=== PATIENT | female | born 1965 | race Caucasian/White ===

== ENCOUNTER 2017-09-01 13:39 | Inpatient (IN) ==
[2017-09-01 15:04] LABS: Basophils # 0.1 K/mcL (0.0-0.2); Basophils % 0.6 %; Eosinophils # 0.2 K/mcL (0.0-0.6); Eosinophils % 2.6 %; Hematocrit 45.3 % (35.3-44.9); Hemoglobin 14.9 g/dL (11.5-15.4); Immature Granulocytes % 0.2 % (0-4); Lymphocytes # 3.7 K/mcL (0.6-4.6); Lymphocytes % 41.9 %; Mean Corpuscular HGB Conc 32.9 g/dL (31.6-35.5); Mean Corpuscular Hemoglobin 30.9 pg (28.0-33.3); Mean Platelet Volume 9.1 fL (9.4-12.4); Monocytes # 0.5 K/mcL (0.0-1.3); Monocytes % 6.1 %; Neutrophils # 4.3 K/mcL (1.6-8.9); Nucleated Red Blood Cells 0.2 /100 WBC (0); Platelet Count 224 K/mcL (140-400); Red Blood Count 4.82 M/mcL (3.82-4.97); Red Cell Distribution Width 12.7 % (11.5-14.5); Segmented Neutrophils % 48.6 %
[2017-09-01 15:30] LABS: Alanine Aminotransferase 12 Units/L (7-52); Albumin 4.5 g/dL (3.5-5.7); Albumin/Globulin Ratio 1.6 (1.1-2.2); Alkaline Phosphatase 97 Units/L (34-104); Aspartate Amino Transferase 14 Units/L (13-39); BUN/Creatinine Ratio 11 (6-26); Bilirubin,Direct 0.1 mg/dL (0.0-0.2); Bilirubin,Indirect 0.4 mg/dL (0.0-1.2); Bilirubin,Total 0.5 mg/dL (0.3-1.0); Blood Urea Nitrogen 9 mg/dL (6-20); Calcium 9.2 mg/dL (8.6-10.3); Carbon Dioxide 32 mEq/L (23-29); Chloride 105 mEq/L (98-107); Globulin 2.8 g/dL (2.4-3.5); Glucose 84 mg/dL (70-105); Lipase 23 Units/L (11-82); Osmolality,Calculated 288 (280-300); Sodium 140 mEq/L (136-145); Total Protein 7.3 g/dL (6.4-8.9); eGFR For African Americans > 60 (> 60); eGFR For Non-African Americans > 60 (> 60)
[2017-09-01] MEDS ORDERED: 0.9 % Sodium Chloride 1,000 ML IVC ONE (16:27)
[2017-09-01] MEDS ORDERED: Ondansetron 4 MG/2 ML VIAL IVP ONE (16:27)
[2017-09-01] MEDS ORDERED: *HR* Nalbuphine 20 MG/ML AMPUL IVP STA (16:27)
--- NOTE | 2017-09-01 16:32 | Emergency Department Note ---
Disposition Clinical Impression: Colitis Disposition: Admitted As Inpatient Condition: Fair Referrals: Juve Becerril MD [Primary Care Provider] - Forms: ED Satisfaction Letter, Work/School Release Time of Disposition: 16:58 Abdominal Pain HPI - General Chief Complaint: ED Abdominal Pain Stated Complaint: Abd Pain / GI Bleed Time Seen by Provider: 09/01/17 16:07 Source: patient, family Nursing Notes Reviewed: Yes Vital Signs Reviewed: Yes - History of Present Illness HPI Narrative: Mrs. Abreu, a 51-year-old female, presents from home for evaluation of abdominal pain. Onset or days ago. Localized to the left lower quadrant and epigastrium. She describes multiple bouts of loose stools which are brown with spots of bright red blood in the water of the bowl. She has nausea with no vomiting. She has no appetite or desire for any by mouth intake. No fever. She does have a history of diverticulitis. She was seen and evaluated by her primary care physician today, Dr. Hale, perform CT imaging as well as some lab work. She is unsure of those results. After going home from this appointment, her symptoms worsened and she presented emergency department. Abdominal surgical history: Total abdominal hysterectomy. Patient is unsure if she still has her Gallbladder. ROS: Positive: As above Negative: Fever, vomiting, incontinence of bowel or bladder, weakness, numbness , tingling, chest pain, palpitations, unusual back pain. Pain Scale: 8 - Related Data Home Medications Medication Instructions Recorded Confirmed ALPRAZolam [Xanax 1 MG Tablet] 0.5 - 1 mg PO BID PRN 05/15/15 05/13/16 Diltiazem CD (24hr) [Cardizem CD] 120 mg PO DAILY 05/15/15 05/13/16 Albuterol Sulfate [Albuterol 2 puff IH QID PRN 05/13/16 05/13/16 Inhaler] Gabapentin [Neurontin] 300 mg PO TID 05/13/16 05/13/16 Pantoprazole Sodium [Protonix] 40 mg PO DAILY 05/13/16 05/13/16 Doxepin [Sinequan] 25 mg PO DAILY 09/01/17 09/01/17 HydrOXYzine Pamoate [Vistaril] 50 mg PO TID PRN 09/01/17 09/01/17 Promethazine [Phenergan] 25 mg PO Q8HR PRN 09/01/17 09/01/17 Quetiapine Fumarate [SEROquel] 100 mg PO HS 09/01/17 09/01/17 carBAMazepine [Tegretol] 200 mg PO BID 09/01/17 09/01/17 cloNIDine HCl [CloNIDine HCl] 0.1 mg PO DAILY 09/01/17 09/01/17 Previous Rx's Medication Instructions Recorded Ipratropium/Albuterol Neb [Duoneb] 3 ml IH Q4HR PRN #50 vial.neb 04/15/16 Allergies Allergy/AdvReac Type Severity Reaction Status Date / Time celecoxib Allergy See Verified 09/01/17 13:46 Comments oxcarbazepine Allergy See Verified 09/01/17 13:46 Comments rofecoxib Allergy See Verified 09/01/17 13:46 Comments Njxtxpg-Bdc-Yrw Reductase Allergy Rash Verified 09/01/17 13:46 Inhibitor [Statins] All systems ED: reviewed and negative except as stated. Review of Systems: As Per HPI Abdominal Pain PMH - Past Medical History Medical history: Reports: atrial fibrillation, diabetes, hypertension, other Female Surgical History: Reports: angioplasty/stent, hysterectomy, other HEALTHCARE RISK CONTROL CONSULTANT history: Reports: no HEALTHCARE RISK CONTROL CONSULTANT history Psychiatric history: Reports: anxiety, bipolar, depression - Social History Smoking status: Current every day smoker Alcohol use: Reports: none Drug use: Reports: none Physical Exam Vital Signs Reviewed General: Patient is alert, oriented, and in moderate distress holding her lower abdomen. Head: atraumatic, normocephalic Eye: normal appearance, PERRL, EOMI, no scleral icterus, no conjunctival injection ENT: mucous membranes moist, normal external ear exam Neck: normal inspection, trachea midline, full ROM Chest: normal inspection, symmetric chest rise Respiratory: Good respiratory effort. Bilateral breath sounds are clear without wheezing, crackles, or rhonchi. Cardiovascular: Regular rate and rhythm. No clicks, rubs, gallops, or murmors. Normal heart sounds. Abdomen: Bowel sounds present normoactive x-4 quadrants. Abdomen is soft, nondistended, and nontender. No guarding or rebound. No organomegaly noted. Musculoskeletal: Spontaneously moving all extremities. Skin: warm, dry, intact. Neuro: Alert and oriented x4. Sensation light touch intact. Psych: Patient's affect is appropriate for situation. - General Limitations: no limitations General appearance: alert, in no apparent distress Course Course Narrative: Patient presents with left lower quadrant pain and blood in her stools concerning for diverticulitis. Her abdomen is not diffusely tender making bowel obstruction less likely. Comparing outpatient labs drawn this morning to those drawn on this emergency department visit: Serum hematology shows no leukocytosis, no anemia Serum chemistry shows normal lateralize, no renal impairment. No hepatic transaminitis. Normal lipase. CT abdomen and pelvis with IV and oral contrast performed this morning as an outpatient interpreted by radiology: CT/CT abd pelvis w iv and oral IMPRESSION: Mild wall thickening involving the distal descending colon and sigmoid colon. Findings may represent a mild colitis however symptoms persist recommend further evaluation with colonoscopy. EKG dated 09/11/1815: 28 interpreted as sinus rhythm with a rate of 69. Normal intervals. Normal axis. Nonspecific ST-T changes. Compared to previous dated 12/01/2016 showing no acute ischemic changes in comparison. I discussed the above the patient. She prefers admission for continued evaluation management given her inability to tolerate by mouth intake secondary to her nausea and her abdominal pain Discussed the patient with the admitting hospitalist, Dr. Oliver, who agrees to accept the patient for continued evaluation and management of colitis. Vital Signs Temperature 98.1 F 09/01/17 13:44 Pulse Rate 74 09/01/17 13:44 Respiratory Rate 18 09/01/17 13:44 Blood Pressure 125/87 09/01/17 13:44 O2 Sat by Pulse Oximetry 98 09/01/17 13:44 Temperature 98.1 F 09/01/17 13:44 Pulse Rate 74 09/01/17 13:44 Respiratory Rate 18 09/01/17 13:44 Blood Pressure 125/87 09/01/17 13:44 O2 Sat by Pulse Oximetry 98 09/01/17 13:44 Oxygen Delivery Oxygen Delivery Room Air Abdominal Pain - Lab Data Result diagrams: 09/01/17 14:52 09/01/17 14:52 Lab Results 09/01/17 09/01/17 09/01/17 Range/Units 14:52 14:52 14:52 WBC 8.8 (4.3-11.1) K/mcL RBC 4.82 (3.82-4.97) M/mcL Hgb 14.9 (11.5-15.4) g/dL Hct 45.3 H (35.3-44.9) % MCV 94.0 (83.0-100.0) fL MCH 30.9 (28.0-33.3) pg MCHC 32.9 (31.6-35.5) g/dL RDW 12.7 (11.5-14.5) % Plt Count 224 (140-400) K/mcL MPV 9.1 L (9.4-12.4) fL Immature Gran % 0.2 (0-4) % Seg Neutrophils % 48.6 % Lymphocytes % 41.9 % Monocytes % 6.1 % Eosinophils % 2.6 % Basophils % 0.6 % Neutrophils # 4.3 (1.6-8.9) K/mcL Lymphocytes # 3.7 (0.6-4.6) K/mcL Monocytes # 0.5 (0.0-1.3) K/mcL Eosinophils # 0.2 (0.0-0.6) K/mcL Basophils # 0.1 (0.0-0.2) K/mcL Nucleated RBCs/100 WBC 0.2 H (0) /100 WBC Sodium 140 (136-145) mEq/L Potassium 4.0 (3.5-5.1) mEq/L Chloride 105 (98-107) mEq/L Carbon Dioxide 32 H (23-29) mEq/L BUN 9 (6-20) mg/dL Creatinine 0.79 (0.60-1.20) mg/dL Est GFR ( Amer) > 60 (> 60) Est GFR (Non-Af Amer) > 60 (> 60) BUN/Creatinine Ratio 11 (6-26) Glucose 84 (70-105) mg/dL Calculated Osmolality 288 (280-300) Calcium 9.2 (8.6-10.3) mg/dL Total Bilirubin 0.5 (0.3-1.0) mg/dL Direct Bilirubin 0.1 (0.0-0.2) mg/dL Indirect Bilirubin 0.4 (0.0-1.2) mg/dL AST 14 (13-39) Units/L ALT 12 (7-52) Units/L Alkaline Phosphatase 97 (34-104) Units/L Serum Total Protein 7.3 (6.4-8.9) g/dL Albumin 4.5 (3.5-5.7) g/dL Globulin 2.8 (2.4-3.5) g/dL Albumin/Globulin Ratio 1.6 (1.1-2.2) Lipase 23 (11-82) Units/L Urine Color (Yellow) Urine Clarity (Clear) Urine pH (5.0-8.0) pH Units Ur Specific [place] (1.010-1.025) Urine Protein (Neg-Trace) mg/dL Urine Glucose (UA) (Normal) mg/dL Urine Ketones (Negative) mg/dL Urine Blood (Negative) Urine Nitrite (Negative) Urine Bilirubin (Negative) Urine Urobilinogen (Normal) mg/dL Ur Leukocyte Esterase (Negative) Ur Culture Indicated? (NO) Blood Type A POSITIVE Antibody Screen NEGATIVE 09/01/17 Range/Units 16:30 WBC (4.3-11.1) K/mcL RBC (3.82-4.97) M/mcL Hgb (11.5-15.4) g/dL Hct (35.3-44.9) % MCV (83.0-100.0) fL MCH (28.0-33.3) pg MCHC (31.6-35.5) g/dL RDW (11.5-14.5) % Plt Count (140-400) K/mcL MPV (9.4-12.4) fL Immature Gran % (0-4) % Seg Neutrophils % % Lymphocytes % % Monocytes % % Eosinophils % % Basophils % % Neutrophils # (1.6-8.9) K/mcL Lymphocytes # (0.6-4.6) K/mcL Monocytes # (0.0-1.3) K/mcL Eosinophils # (0.0-0.6) K/mcL Basophils # (0.0-0.2) K/mcL Nucleated RBCs/100 WBC (0) /100 WBC Sodium (136-145) mEq/L Potassium (3.5-5.1) mEq/L Chloride (98-107) mEq/L Carbon Dioxide (23-29) mEq/L BUN (6-20) mg/dL Creatinine (0.60-1.20) mg/dL Est GFR ( Amer) (> 60) Est GFR (Non-Af Amer) (> 60) BUN/Creatinine Ratio (6-26) Glucose (70-105) mg/dL Calculated Osmolality (280-300) Calcium (8.6-10.3) mg/dL Total Bilirubin (0.3-1.0) mg/dL Direct Bilirubin (0.0-0.2) mg/dL Indirect Bilirubin (0.0-1.2) mg/dL AST (13-39) Units/L ALT (7-52) Units/L Alkaline Phosphatase (34-104) Units/L Serum Total Protein (6.4-8.9) g/dL Albumin (3.5-5.7) g/dL Globulin (2.4-3.5) g/dL Albumin/Globulin Ratio (1.1-2.2) Lipase (11-82) Units/L Urine Color Yellow (Yellow) Urine Clarity Clear (Clear) Urine pH 6.0 (5.0-8.0) pH Units Ur Specific [place] > 1.030 H (1.010-1.025) Urine Protein Negative (Neg-Trace) mg/dL Urine Glucose (UA) Normal (Normal) mg/dL Urine Ketones Negative (Negative) mg/dL Urine Blood Negative (Negative) Urine Nitrite Negative (Negative) Urine Bilirubin Negative (Negative) Urine Urobilinogen Normal (Normal) mg/dL Ur Leukocyte Esterase Negative (Negative) Ur Culture Indicated? NO (NO) Blood Type Antibody Screen
[2017-09-01] MEDS ORDERED: MetroNIDAZOLE 500 MG/100 ML 500 MG/100 ML BAG IVPB ONE (16:34)
--- NOTE | 2017-09-01 16:35 | Emergency Department Note ---
START Narrative - START START: I examined this patient and my medical decision-making was reviewed with the Resident Physician. I agree with the documented findings, disposition and treatment plan as described except to the extent set forth below. 51-year-old female presents emergency room for abdominal pain. Patient outpatient CT scan done this morning that showed evidence of colitis in the sigmoid colon in the descending colon. Patient does not feel well enough to go home. She does not have a white count. We will give IV antibiotics and admit overnight.
[2017-09-01 16:44] LABS: Bilirubin,Urine Negative (Negative); Blood,Urine Negative (Negative); Clarity,Urine Clear (Clear); Color,Urine Yellow (Yellow); Glucose,Urine (UA) Normal (Normal); Ketones,Urine Negative (Negative); Leukocyte Esterase,Urine Negative (Negative); Nitrite,Urine Negative (Negative); Protein,Urine Negative (Neg-Trace); Specific Gravity,Urine > 1.030 (1.010-1.025); Urobilinogen,Urine Normal (Normal)
[2017-09-01] MEDS ORDERED: *HR* Nalbuphine 10 MG/ML AMPUL IVP STA (17:25)
[2017-09-01] MEDS: *HR* Promethazine 25 MG/ML VIAL IVP PRN (20:14)
[2017-09-01] MEDS ORDERED: Naloxone 0.4 MG/ML INJ IVP PRN (21:48)
[2017-09-01] MEDS ORDERED: hydrOXYzine pamoate 25 MG CAPSULE PO PRN (21:55)
[2017-09-01] MEDS ORDERED: ALPRAZolam 1 MG TABLET PO PRN (21:55)
--- NOTE | 2017-09-01 22:16 | Internal Med History&Physical ---
Date of Encounter: 09/01/17 Time of Encounter: 20:00 Internal Medicine - H&P: HPI Chief complaint: Abdominal pain Admitted From: Home Plans for Post Hospital Care: Home History of present illness: Ms. Abreu is a 51 year old female present to ER for abdominal pain and rectal bleeding. Past medical history is significant for paroxysmal A. fib, diabetes on diet control only, hypertension, COPD on night oxygen. Patient said since 4 days ago she started has abdominal pain, which located on left lower quadrant. Patient has nausea and vomited once. The vomiting are stomach content, no blood in it. Patient has bloody diarrhea since 2 days ago. Patient said the blood is bright red, sometimes mixed with stool. The diarrhea subsided today. Patient denies fever. Patient had abdominal CT which shows colitis. Patient was admitted for further management. Past Med Surg Social Fam HX - Past Medical History Medical history: atrial fibrillation, diabetes, hypertension, other Psychiatric history: anxiety, bipolar, depression - Past Surgical History Surgical History: , hysterectomy - Social History Smoking Status: Current every day smoker Packs per day: 1 Smokeless Tobacco Status: No Alcohol use: none Drug use: none - Family History Mother Hx Family Cardiac Disorders: Yes Hx Family Endocrine Disorder: Yes Father Hx Family Cardiac Disorders: Yes Hx Family Cancer: Yes (prostate ca) Hx Family Endocrine Disorder: Yes Internal Medicine - H&P: Meds ALPRAZolam [Xanax 1 MG Tablet] 0.5 - 1 mg PO BID PRN 05/15/15 [History] Diltiazem CD (24hr) [Cardizem CD] 120 mg PO DAILY 05/15/15 [History] Ipratropium/Albuterol Neb [Duoneb] 3 ml IH Q4HR PRN #50 vial.neb 04/15/16 [Rx] Albuterol Sulfate [Albuterol Inhaler] 2 puff IH QID PRN 05/13/16 [History] Gabapentin [Neurontin] 300 mg PO TID 05/13/16 [History] Pantoprazole Sodium [Protonix] 40 mg PO DAILY 05/13/16 [History] Doxepin [Sinequan] 25 mg PO DAILY 09/01/17 [History] HydrOXYzine Pamoate [Vistaril] 50 mg PO TID PRN 09/01/17 [History] Promethazine [Phenergan] 25 mg PO Q8HR PRN 09/01/17 [History] Quetiapine Fumarate [SEROquel] 100 mg PO HS 09/01/17 [History] carBAMazepine [Tegretol] 200 mg PO BID 09/01/17 [History] cloNIDine HCl [CloNIDine HCl] 0.1 mg PO DAILY 09/01/17 [History] 3 Allergy/AdvReac Type Severity Reaction Status Date / Time celecoxib Allergy See Verified 09/01/17 13:46 Comments oxcarbazepine Allergy See Verified 09/01/17 13:46 Comments rofecoxib Allergy See Verified 09/01/17 13:46 Comments Jklwlay-Pla-Tvk Reductase Allergy Rash Verified 09/01/17 13:46 Inhibitor [Statins] All Systems PM: A 10-system review of systems was performed and is negative for pertinent findings except as documented above in the HPI. - Constitutional Vitals: Temp Pulse Resp BP Pulse Ox 98.0 F 62 15 148/84 96 09/01/17 18:44 09/01/17 18:44 09/01/17 18:44 09/01/17 18:44 09/01/17 18:44 General appearance: Present: A&O X 3, no acute distress, answers questions appropriately - Head Head exam: Present: atraumatic, normocephalic - Eye Eye exam: Present: PERRL, conjuntiva pink, sclera anicteric Pupils: Present: PERRL - Neck Neck exam general surgery: Present: supple, trachea midline. Absent: lymphadenopathy - Respiratory Respiratory exam: Present: CTAB. Absent: accessory muscle use, rales, rhonchi, wheezes - Cardiovascular Cardiovascular exam: Present: RRR, +S1, +S2. Absent: diastolic murmur, gallop, rubs, systolic murmur - GI/Abdominal GI/Abdominal exam: Present: normal bowel sounds, soft, tenderness (On 4Q, mainly LLQ), no peritoneal signs. Absent: distended - Extremities Exam Extremities exam: Present: warm, radial pulses palpable and symmetrical. Absent : calf tenderness, cyanotic, pedal edema - Neurological Exam Neurological exam: Present: CN II-XII intact, oriented X3, no focal deficits. Absent: pronater drift, facial droop, speech deficit - Skin Skin exam: Present: dry, intact Internal Med - H&P Results - Labs CBC & Chem 7: 09/01/17 14:52 09/01/17 14:52 - EKG Data -: EKG Interpreted by Myself EKG shows normal: sinus rhythm Rate: normal - Assessment and plan (1) A-fib Current Visit: Yes Status: Acute Assessment and plan: Right now sinus rhythm. Patient takes aspirin only for anticoagulation at home. Qualifiers: Atrial fibrillation type: paroxysmal Qualified Code(s): I48.0 - Paroxysmal atrial fibrillation (2) Diabetes Current Visit: Yes Status: Acute Assessment and plan: Patient is on diet control only at home. Continue closely monitor glucose level Qualifiers: Diabetes mellitus type: type 2 Diabetes mellitus fpc insulin use: without long term care pharmacist use Diabetes mellitus complication status: without complication Qualified Code(s): E11.9 - Type 2 diabetes mellitus without complications (3) Hypertension Current Visit: Yes Status: Acute Assessment and plan: Continue home medications. Closely monitor BP Qualifiers: Hypertension type: essential hypertension Qualified Code(s): I10 - Essential (primary) hypertension (4) Rectal bleeding Current Visit: Yes Status: Acute Assessment and plan: It is more like bloody diarrhea caused by colitis. Patient has stable H&H and vitals at this point. - Continue colitis treatment with Cipro and Flagyl - Nothing by mouth, IV fluid, IV PPI - Consul GI - Stool GI panel - Closely monitor H&H and vitals (5) DVT prophylaxis Current Visit: Yes Status: Acute Assessment and plan: EPCD (6) COPD (chronic obstructive pulmonary disease) Current Visit: Yes Status: Acute Assessment and plan: stable. No wheezing. Continue bronchodilator as needed Qualifiers: COPD type: emphysema Emphysema type: unspecified Qualified Code(s): J43.9 - Emphysema, unspecified (7) Colitis Current Visit: Yes Status: Acute Assessment and plan: CT abdomen shows colitis. Patient has acute onset abdominal pain with bloody diarrhea. Consider acute colitis. - Nothing by mouth, IV fluid, IV Cipro and Flagyl - GI stool panel - Time Spent With Patient Total time spent is greater than 50% in coordination of care (as documented) at patient's floor/unit and/or counseling patient: 40 minutes Greater than 35 minutes
[2017-09-01] MEDS: OXYCODONE Oral CONC 10 MG/0.5 ML ORAL.SYG SL PRN (23:25)
[2017-09-01] MEDS: Pantoprazole 40 MG VIAL IVP SCH (23:30)
[2017-09-01] MEDS: 0.9 % Sodium Chloride 1,000 ML IVC SCH (23:30)
[2017-09-02] MEDS ORDERED: Ipratropium/Albuterol Neb 3 ML IH PRN
[2017-09-02] MEDS: ALPRAZolam 1 MG TABLET PO PRN ×2 (00:33→22:42)
[2017-09-02] MEDS: MetroNIDAZOLE 500 MG/100 ML 500 MG/100 ML BAG IVPB SCH ×3 (01:19→16:54)
[2017-09-02] MEDS: Ondansetron 4 MG/2 ML VIAL IVP PRN ×3 (05:27→17:13)
[2017-09-02 06:18] LABS: Basophils % 0.6 %; Eosinophils # 0.2 K/mcL (0.0-0.6); Hematocrit 36.3 % (35.3-44.9); Hemoglobin 11.8 g/dL (11.5-15.4); Immature Granulocytes % 0.3 % (0-4); Lymphocytes # 2.7 K/mcL (0.6-4.6); Lymphocytes % 40.6 %; Mean Corpuscular HGB Conc 32.5 g/dL (31.6-35.5); Mean Corpuscular Hemoglobin 30.6 pg (28.0-33.3); Mean Platelet Volume 9.2 fL (9.4-12.4); Monocytes # 0.5 K/mcL (0.0-1.3); Monocytes % 6.9 %; Neutrophils # 3.3 K/mcL (1.6-8.9); Platelet Count 158 K/mcL (140-400); Red Blood Count 3.86 M/mcL (3.82-4.97); Red Cell Distribution Width 12.7 % (11.5-14.5); Segmented Neutrophils % 48.6 %
[2017-09-02 06:25] LABS: INR 1.1; Prothrombin Time 11.4 Seconds (9.4-12.1)
[2017-09-02 06:36] LABS: BUN/Creatinine Ratio 13 (6-26); Blood Urea Nitrogen 10 mg/dL (6-20); Carbon Dioxide 27 mEq/L (23-29); Chloride 112 mEq/L (98-107); Glucose 125 mg/dL (70-105); Magnesium 1.9 mg/dL (1.6-2.6); Osmolality,Calculated 295 (280-300); Potassium 3.7 mEq/L (3.5-5.1); Sodium 142 mEq/L (136-145); eGFR For African Americans > 60 (> 60); eGFR For Non-African Americans > 60 (> 60)
[2017-09-02] MEDS: Gabapentin 300 MG CAPSULE PO SCH ×3 (09:30→22:38)
[2017-09-02] MEDS: carBAMazepine 200 MG TABLET PO SCH ×2 (09:30→22:37)
[2017-09-02] MEDS: Diltiazem CD (24hr) 120 MG CAPSULE PO SCH (09:30)
[2017-09-02] MEDS: Pantoprazole 40 MG VIAL IVP SCH ×2 (09:30→22:38)
[2017-09-02] MEDS: OXYCODONE Oral CONC 10 MG/0.5 ML ORAL.SYG SL PRN ×3 (09:30→18:00)
[2017-09-02] MEDS: cloNIDine HCl 0.1 MG TABLET PO SCH (09:30)
[2017-09-02] MEDS: 0.9 % Sodium Chloride 1,000 ML IVC SCH (12:17)
[2017-09-02] MEDS: *HR* Promethazine 25 MG/ML VIAL IVP PRN (12:20)
--- NOTE | 2017-09-02 15:07 | Gastroenterology Consult Note ---
<BaigSumit Pisano - Last Filed: 09/02/17 15:05> Date of Encounter: 09/02/17 Time of Encounter: 11:25 - Assessment and plan (1) Colitis Current Visit: Yes Status: Acute Assessment and plan: CT A/P 09/01 with mild wall thickening involving the distal descending colon and sigmoid colon. Ischemic vs infectious colitis. Continue Cipro and Flagyl. Plan for colonoscopy in 6-8 weeks as outpatient. Follow up in GI office in 2-4 weeks. (2) Rectal bleeding Current Visit: Yes Status: Acute Assessment and plan: Likely secondary to colitis. Plan for colonoscopy as an outpatient in 6-8 weeks. No anemia noted. Continue to monitor CBC. - Time Spent With Patient Total time spent is greater than 50% in coordination of care (as documented) at patient's floor/unit and/or counseling patient: GI History of Present Illness - Data of Consult Patient: known to practice within the last 3 years Consult date: 09/02/17 Requesting Physician: Trae Munoz MD - Consult Narrative Reason for consult: Rectal bleeding History of present illness: Ms. Abreu is a 51 year old female with PMHx of Afib, DM, HTN, and COPD who presented to the ED with LLQ abdominal pain that started about 4 days prior to admission and rectal bleeding started 2 days prior to admission. Pt reports vomiting one time, denies hematemesis. CT A/P 09/01 with mild wall thickening involving the distal descending colon and sigmoid colon. She was started on Cipro and Flagyl. Hgb 14.9 on admission and today Hgb 11.8. She denies fever, chills, chest pain, shortness of breath. Procedures: EGD 05/13/2016 Dr. Jerome: Non-bleeding gastric ulcers, largest 6mm. NSAIDs: None Anticoagulation: None Past Med Surg Social Fam HX - Past Medical History Medical history: atrial fibrillation, diabetes, hypertension, other Psychiatric history: anxiety, bipolar, depression - Past Surgical History Surgical History: , hysterectomy - Social History Smoking Status: Current every day smoker Packs per day: 1 Smokeless Tobacco Status: No Alcohol use: none Drug use: none - Family History Mother Hx Family Cardiac Disorders: Yes Hx Family Endocrine Disorder: Yes Father Hx Family Cardiac Disorders: Yes Hx Family Cancer: Yes (prostate ca) Hx Family Endocrine Disorder: Yes - Gastrointestinal Gastrointestinal: Present: as per HPI - Constitutional Constitutional: as per HPI - EENT Eyes: as per HPI Ears: Present: as per HPI Nose, mouth and throat: Present: as per HPI - Cardiovascular Cardiovascular ROS: Present: as per HPI - Respiratory Respiratory IM: Present: as per HPI - Genitourinary Genitourinary: Absent: change in color, Urinary frequency - Neurological ROS Neurological GI: Present: as per HPI - Hematologic/Lymphatic Hematologic/Lymphatic pediatric: Present: as per HPI - Musculoskeletal Musculoskeletal ROS GI: Present: as per HPI - Integumentary Integumentary GI: Present: as per HPI - Psychiatric ROS Psychiatric GI: Present: as per HPI - Endocrine Endocrine IM: Present: as per HPI - Constitutional Vitals: Temp Pulse Resp BP Pulse Ox 98.1 F 65 18 116/81 91 09/02/17 14:19 09/02/17 14:19 09/02/17 14:19 09/02/17 14:19 09/02/17 14:19 General appearance: Present: cooperative, A&O X 3, no acute distress, answers questions appropriately - Head Head exam: Present: atraumatic, normocephalic - Eye Eye exam: Present: normal appearance, sclera anicteric - ENT ENT exam: Present: mucous membranes moist - Neck Neck exam general surgery: Present: normal inspection, trachea midline - Respiratory Respiratory exam: Present: CTAB. Absent: rales, rhonchi - Cardiovascular Cardiovascular exam: Present: RRR, +S1, +S2 - GI/Abdominal GI/Abdominal exam: Present: soft, tenderness (LLQ), no peritoneal signs. Absent : distended, firm, guarding - Rectal Rectal exam: Present: deferred - Extremities Exam Extremities exam: Present: warm - Neurological Exam Neurological exam: Present: no focal deficits - Psychiatric Psychiatric exam: Present: normal affect, normal mood - Skin Skin exam: Present: dry, intact, normal color, warm Results - Labs CBC & Chem 7: 09/02/17 06:05 09/02/17 06:05 Labs: Last Result Calcium 8.0 mg/dL (8.6-10.3) L 09/02/17 06:05 Entire Visit Hgb 11.8 g/dL (11.5-15.4) D 09/02/17 06:05 Hct 36.3 % (35.3-44.9) 09/02/17 06:05 PT 11.4 Seconds (9.4-12.1) 09/02/17 06:05 Total Bilirubin 0.5 mg/dL (0.3-1.0) 09/01/17 14:52 AST 14 Units/L (13-39) 09/01/17 14:52 ALT 12 Units/L (7-52) 09/01/17 14:52 Lipase 23 Units/L (11-82) 09/01/17 14:52 - ABG ABG results: PT/INR, D-dimer PT 11.4 Seconds (9.4-12.1) 09/02/17 06:05 Consult Discharge Plan - Plan Referrals: Juve Becerril MD [Primary Care Provider] - 09/13/17 1:15 pm <Isac Mendez - Last Filed: 09/02/17 23:01> Date of Encounter: 09/02/17 Time of Encounter: 16:00 - Time Spent With Patient Total time spent is greater than 50% in coordination of care (as documented) at patient's floor/unit and/or counseling patient: GI History of Present Illness - Data of Consult Requesting Physician: Trae Munoz MD - Consult Narrative History of present illness: Ms. Abreu is a 51 year old female - Constitutional Vitals: Temp Pulse Resp BP Pulse Ox 98.5 F 78 15 132/84 95 09/02/17 19:50 09/02/17 19:50 09/02/17 19:50 09/02/17 19:50 09/02/17 19:50 Results - Labs CBC & Chem 7: 09/02/17 06:05 09/02/17 06:05 Labs: Last Result Calcium 8.0 mg/dL (8.6-10.3) L 09/02/17 06:05 Entire Visit Hgb 11.8 g/dL (11.5-15.4) D 09/02/17 06:05 Hct 36.3 % (35.3-44.9) 09/02/17 06:05 PT 11.4 Seconds (9.4-12.1) 09/02/17 06:05 Total Bilirubin 0.5 mg/dL (0.3-1.0) 09/01/17 14:52 AST 14 Units/L (13-39) 09/01/17 14:52 ALT 12 Units/L (7-52) 09/01/17 14:52 Lipase 23 Units/L (11-82) 09/01/17 14:52 - ABG ABG results: PT/INR, D-dimer PT 11.4 Seconds (9.4-12.1) 09/02/17 06:05 - Attending Attestation I have personally performed a face to face evaluation on this patient. I have reviewed and agree with the care plan. History and Exam by me shows: Pt with abd pain with bloody BM. CT with colitis, consistent with ischemic colitis. No more rectal bleeding but has abd pain/bloating. Rec: EGD to r/o gatric causes. Colon out after 8 weeeks Iv abs for now and once felling better then d/c on po cipro/flagyl x 1 week
[2017-09-02] MEDS ORDERED: *HR* Midazolam HCl 5 MG/5 ML VIAL IVP ONE (15:36)
[2017-09-02] MEDS ORDERED: *HR* FentaNYL (PF) 100 MCG/2 ML VIAL ONE (15:37)
[2017-09-02] MEDS ORDERED: Tetracaine/Benzocaine/Butamben 200MG/SPRAY (100SPY/BOT) MM ONE ×2 (15:50→16:04)
[2017-09-02] MEDS ORDERED: Simethicone 40 MG/0.6 ML MLS IR ONE ×2 (15:50→16:04)
[2017-09-02] MEDS ORDERED: 0.9 % Sodium Chloride 500 ML IVC SCH (16:00)
[2017-09-02] MEDS ORDERED: *HR* Midazolam HCl 2 MG/2 ML VIAL IVP ONE (16:04)
[2017-09-02] MEDS ORDERED: *HR* FentaNYL (PF) 100 MCG/2 ML VIAL IVP ONE (16:04)
--- NOTE | 2017-09-02 16:04 | Pre-Sedation Evaluation ---
Pre-sedation evaluation - Pre-sedation checklist Date of procedure: 09/02/17 Procedure: egd Recent Vitals: Last Vital Signs Temp 98.5 F 09/02/17 15:39 Pulse 60 09/02/17 16:02 Resp 18 09/02/17 16:02 BP 120/75 09/02/17 16:02 Pulse Ox 99 09/02/17 16:02 H&P (including ROS) documented in medical record: Yes Previous reaction to sedatives/anesthetics: No Dietary Status: NPO after Midnight Dentition: No loose teeth or bridges ASA Classification *see protocol: CLASS II-Mild systemic disease Plan of Care: Pt appropriate candidate for procedure/moderate/conscious sedation , Risks/benefits of procedure/sedation discussed w/ patient/family
--- NOTE | 2017-09-02 17:07 | Electrocardiograph Report ---
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
--- NOTE | 2017-09-02 17:28 | Internal Med Progress Note ---
Date of Encounter: 09/02/17 Time of Encounter: 17:25 - Assessment and plan (1) Colitis Current Visit: Yes Status: Acute Assessment and plan: Patient has acute onset abdominal pain with bloody diarrhea. CT abdomen shows colitis. - started on IV fluid, IV Cipro and Flagyl - GI stool panel - GI recommended to continue abx, and f/u as outpatient in 2-4 weeks, plan C- scope in 6-8 weeks. (2) A-fib Current Visit: Yes Status: Acute Assessment and plan: Right now sinus rhythm. Patient takes aspirin only for anticoagulation at home. - Hold asa for a week due to bloody diarrhea. Qualifiers: Atrial fibrillation type: paroxysmal Qualified Code(s): I48.0 - Paroxysmal atrial fibrillation (3) Diabetes Current Visit: Yes Status: Acute Assessment and plan: Patient is on diet control only at home. Continue closely monitor glucose level Qualifiers: Diabetes mellitus type: type 2 Diabetes mellitus manager long term care insulin use: without intermediate use Diabetes mellitus complication status: without complication Qualified Code(s): E11.9 - Type 2 diabetes mellitus without complications (4) Hypertension Current Visit: Yes Status: Acute Assessment and plan: Continue home medications. Closely monitor BP Qualifiers: Hypertension type: essential hypertension Qualified Code(s): I10 - Essential (primary) hypertension (5) Rectal bleeding Current Visit: Yes Status: Acute Assessment and plan: It is more like bloody diarrhea caused by colitis. Patient has stable H&H and vitals at this point. - Continue colitis treatment with Cipro and Flagyl - Closely monitor H&H and vitals (6) DVT prophylaxis Current Visit: Yes Status: Acute Assessment and plan: EPCD (7) COPD (chronic obstructive pulmonary disease) Current Visit: Yes Status: Acute Assessment and plan: stable. No wheezing. Continue bronchodilator as needed Qualifiers: COPD type: emphysema Emphysema type: unspecified Qualified Code(s): J43.9 - Emphysema, unspecified - Time Spent With Patient Total time spent is greater than 50% in coordination of care (as documented) at patient's floor/unit and/or counseling patient: Greater than 35 minutes - Subjective Interval history: Improved abdominal pain. - Constitutional Vitals: Temp Pulse Resp BP Pulse Ox 98.4 F 58 16 102/64 98 09/02/17 16:50 09/02/17 16:50 09/02/17 16:50 09/02/17 16:50 09/02/17 16:50 General appearance: Present: A&O X 3, no acute distress, answers questions appropriately Exam: PHYSICAL EXAMINATION: GENERAL APPEARANCE: The patient is alert, oriented and in no acute distress. HEENT: Head is normocephalic. The sinuses are nontender. Pupils are equal and reactive. The nares are patent. Oropharynx clear without lesions. NECK: Supple without lymphadenopathy. HEART: Regular rate and rhythm. LUNGS: No crackles or wheezes are heard. ABDOMEN: Soft, tender to palpation at lower abdomen, nondistended with good bowel sounds heard. Inguinal area is normal. EXTREMITIES: Without cyanosis, clubbing or edema. NEUROLOGICAL: Gross nonfocal. SKIN: Warm and dry without any rash. Internal Medicine: Result - Labs CBC & Chem 7: 09/02/17 06:05 09/02/17 06:05 - ABG Interpretation ABG results: PT/INR, D-dimer PT 11.4 Seconds (9.4-12.1) 09/02/17 06:05 Consult Discharge Plan - Plan Referrals: Juve Becerril MD [Primary Care Provider] - 09/13/17 1:15 pm
[2017-09-03] MEDS: Ondansetron 4 MG/2 ML VIAL IVP PRN ×2 (00:55→10:44)
[2017-09-03] MEDS: OXYCODONE Oral CONC 10 MG/0.5 ML ORAL.SYG SL PRN ×3 (00:55→17:09)
[2017-09-03] MEDS: MetroNIDAZOLE 500 MG/100 ML 500 MG/100 ML BAG IVPB SCH ×2 (02:18→10:44)
[2017-09-03 06:58] LABS: Hematocrit 34.2 % (35.3-44.9); Hemoglobin 11.1 g/dL (11.5-15.4); Mean Corpuscular HGB Conc 32.5 g/dL (31.6-35.5); Mean Corpuscular Hemoglobin 30.6 pg (28.0-33.3); Mean Corpuscular Volume 94.2 fL (83.0-100.0); Mean Platelet Volume 9.6 fL (9.4-12.4); Platelet Count 146 K/mcL (140-400); Red Blood Count 3.63 M/mcL (3.82-4.97); Red Cell Distribution Width 12.6 % (11.5-14.5)
[2017-09-03 06:59] LABS: BUN/Creatinine Ratio 11 (6-26); Blood Urea Nitrogen 9 mg/dL (6-20); Carbon Dioxide 28 mEq/L (23-29); Chloride 110 mEq/L (98-107); Glucose 142 mg/dL (70-105); Osmolality,Calculated 295 (280-300); Potassium 3.7 mEq/L (3.5-5.1); Sodium 142 mEq/L (136-145); eGFR For African Americans > 60 (> 60); eGFR For Non-African Americans > 60 (> 60)
[2017-09-03] MEDS: carBAMazepine 200 MG TABLET PO SCH ×2 (08:33→20:09)
[2017-09-03] MEDS: Gabapentin 300 MG CAPSULE PO SCH ×3 (08:33→20:21)
[2017-09-03] MEDS: cloNIDine HCl 0.1 MG TABLET PO SCH ×2 (08:41→20:08)
[2017-09-03] MEDS: Diltiazem CD (24hr) 120 MG CAPSULE PO SCH (08:41)
[2017-09-03] MEDS: Pantoprazole 40 MG VIAL IVP SCH (10:44)
[2017-09-03] MEDS: Nicotine 14 MG PATCH.TD24 TD SCH (11:59)
--- NOTE | 2017-09-03 13:51 | Internal Med Progress Note ---
Date of Encounter: 09/03/17 Time of Encounter: 13:49 - Assessment and plan (1) Colitis Current Visit: Yes Status: Acute Assessment and plan: Patient has acute onset abdominal pain with bloody diarrhea. CT abdomen shows colitis. - started on IV fluid, IV Cipro and Flagyl. changed to oral abx today. - GI stool panel pending. - GI recommended to continue abx, and f/u as outpatient in 2-4 weeks, plan C- scope in 6-8 weeks. - plan to dc tomorrow. (2) A-fib Current Visit: Yes Status: Acute Assessment and plan: Right now sinus rhythm. Patient takes aspirin only for anticoagulation at home. - Hold asa for a week due to bloody diarrhea. Qualifiers: Atrial fibrillation type: paroxysmal Qualified Code(s): I48.0 - Paroxysmal atrial fibrillation (3) Diabetes Current Visit: Yes Status: Acute Assessment and plan: Patient is on diet control only at home. Continue closely monitor glucose level Qualifiers: Diabetes mellitus type: type 2 Diabetes mellitus salvage determiner insulin use: without salvage determiner use Diabetes mellitus complication status: without complication Qualified Code(s): E11.9 - Type 2 diabetes mellitus without complications (4) Hypertension Current Visit: Yes Status: Acute Assessment and plan: Continue home medications. Closely monitor BP Qualifiers: Hypertension type: essential hypertension Qualified Code(s): I10 - Essential (primary) hypertension (5) Rectal bleeding Current Visit: Yes Status: Acute Assessment and plan: It is more like bloody diarrhea caused by colitis. Patient has stable H&H and vitals at this point. - Continue colitis treatment with Cipro and Flagyl - Closely monitor H&H and vitals (6) DVT prophylaxis Current Visit: Yes Status: Acute (7) COPD (chronic obstructive pulmonary disease) Current Visit: Yes Status: Acute Assessment and plan: stable. No wheezing. Continue bronchodilator as needed Qualifiers: COPD type: emphysema Emphysema type: unspecified Qualified Code(s): J43.9 - Emphysema, unspecified - Time Spent With Patient Total time spent is greater than 50% in coordination of care (as documented) at patient's floor/unit and/or counseling patient: Greater than 35 minutes - Subjective Interval history: Improved abdominal pain. - Constitutional Vitals: Temp Pulse Resp BP Pulse Ox 98.4 F 85 15 110/77 94 09/03/17 11:07 09/03/17 11:07 09/03/17 11:07 09/03/17 11:07 09/03/17 11:07 General appearance: Present: A&O X 3, no acute distress, answers questions appropriately Exam: PHYSICAL EXAMINATION: GENERAL APPEARANCE: The patient is alert, oriented and in no acute distress. HEENT: Head is normocephalic. The sinuses are nontender. Pupils are equal and reactive. The nares are patent. Oropharynx clear without lesions. NECK: Supple without lymphadenopathy. HEART: Regular rate and rhythm. LUNGS: No crackles or wheezes are heard. ABDOMEN: Soft, nontender, nondistended with good bowel sounds heard. Inguinal area is normal. EXTREMITIES: Without cyanosis, clubbing or edema. NEUROLOGICAL: Gross nonfocal. SKIN: Warm and dry without any rash. Internal Medicine: Result - Labs CBC & Chem 7: 09/03/17 06:16 09/03/17 06:16 Labs: Short CBC 09/03/17 Range/Units 06:16 WBC 6.0 (4.3-11.1) K/mcL Hgb 11.1 L (11.5-15.4) g/dL Hct 34.2 L (35.3-44.9) % Plt Count 146 (140-400) K/mcL BMP 09/03/17 06:16 Sodium 142 Potassium 3.7 Chloride 110 H Carbon Dioxide 28 BUN 9 Creatinine 0.79 Glucose 142 H Calcium 8.0 L - ABG Interpretation ABG results: PT/INR, D-dimer PT 11.4 Seconds (9.4-12.1) 09/02/17 06:05 Consult Discharge Plan - Plan Referrals: Juve Becerril MD [Primary Care Provider] - 09/13/17 1:15 pm
[2017-09-03] MEDS: Ondansetron ODT 4 MG TAB.RAPDIS SL PRN (17:01)
[2017-09-03] MEDS: metroNIDAZOLE 500 MG TABLET PO SCH ×2 (17:01→20:21)
[2017-09-03] MEDS: ALPRAZolam 1 MG TABLET PO PRN (17:08)
[2017-09-04] MEDS: OXYCODONE Oral CONC 10 MG/0.5 ML ORAL.SYG SL PRN ×4 (01:48→20:36)
[2017-09-04] MEDS: Ondansetron ODT 4 MG TAB.RAPDIS SL PRN ×2 (01:49→07:31)
[2017-09-04 06:52] LABS: BUN/Creatinine Ratio 12 (6-26); Blood Urea Nitrogen 9 mg/dL (6-20); Calcium 8.1 mg/dL (8.6-10.3); Carbon Dioxide 23 mEq/L (23-29); Chloride 110 mEq/L (98-107); Glucose 91 mg/dL (70-105); Osmolality,Calculated 288 (280-300); Potassium 4.5 mEq/L (3.5-5.1); Sodium 140 mEq/L (136-145); eGFR For African Americans > 60 (> 60); eGFR For Non-African Americans > 60 (> 60)
[2017-09-04 06:55] LABS: Red Cell Distribution Width 12.6 % (11.5-14.5)
[2017-09-04 06:56] LABS: Hematocrit 39.1 % (35.3-44.9); Hemoglobin 12.6 g/dL (11.5-15.4); Immature Platelets 7.1 % (1.1-6.1); Mean Corpuscular HGB Conc 32.2 g/dL (31.6-35.5); Mean Corpuscular Volume 96.3 fL (83.0-100.0); Mean Platelet Volume 11.4 fL (9.4-12.4); Red Blood Count 4.06 M/mcL (3.82-4.97)
[2017-09-04] MEDS: carBAMazepine 200 MG TABLET PO SCH ×2 (07:30→20:35)
[2017-09-04] MEDS: Nicotine 14 MG PATCH.TD24 TD SCH (07:31)
[2017-09-04] MEDS: Diltiazem CD (24hr) 120 MG CAPSULE PO SCH (07:31)
[2017-09-04] MEDS: metroNIDAZOLE 500 MG TABLET PO SCH ×3 (07:31→20:35)
[2017-09-04] MEDS: Gabapentin 300 MG CAPSULE PO SCH ×3 (07:31→20:36)
[2017-09-04] MEDS: *HR* Promethazine 25 MG/ML VIAL IVP PRN (11:45)
[2017-09-04] MEDS: 0.9 % Sodium Chloride 1,000 ML IVC SCH (14:31)
[2017-09-04] MEDS: ALPRAZolam 1 MG TABLET PO PRN (14:40)
--- NOTE | 2017-09-04 17:23 | Internal Med Progress Note ---
Date of Encounter: 09/04/17 Time of Encounter: 11:00 - Assessment and plan (1) Colitis Current Visit: Yes Status: Acute Assessment and plan: Patient with left sided abdominal pain this morning; acute abdominal series showed no acute findings and negative for bowel obstruction CT of the abdomen on 09/01/17 showed mild wall thickening involving the distal descending colon and sigmoid colon; ischemic versus infectious colitis. GI following with recommendations for EGD which showed no acute findings Recommendations to continue Cipro/Flagyl and colonoscopy as an outpatient in 6- 8 weeks Will continue current management (2) Rectal bleeding Current Visit: Yes Status: Acute Assessment and plan: Suspect secondary to infectious colitis. Patient has stable H&H and vitals at this point. Continue colitis treatment with Cipro and Flagyl Closely monitor H&H and vitals (3) A-fib Current Visit: Yes Status: Acute Assessment and plan: Patient takes aspirin only for anticoagulation at home. Will hold asa for a week due to bloody diarrhea. Qualifiers: Atrial fibrillation type: paroxysmal Qualified Code(s): I48.0 - Paroxysmal atrial fibrillation (4) Diabetes Current Visit: Yes Status: Acute Assessment and plan: Patient is on diet control only at home. Continue closely monitor glucose level Qualifiers: Diabetes mellitus type: type 2 Diabetes mellitus penitentiary insulin use: without aboriginal education teacher use Diabetes mellitus complication status: without complication Qualified Code(s): E11.9 - Type 2 diabetes mellitus without complications (5) Hypertension Current Visit: Yes Status: Acute Assessment and plan: Continue home medications. Closely monitor BP Qualifiers: Hypertension type: essential hypertension Qualified Code(s): I10 - Essential (primary) hypertension (6) COPD (chronic obstructive pulmonary disease) Current Visit: Yes Status: Acute Assessment and plan: Stable; continue bronchodilator as needed Qualifiers: COPD type: emphysema Emphysema type: unspecified Qualified Code(s): J43.9 - Emphysema, unspecified (7) DVT prophylaxis Current Visit: Yes Status: Acute Assessment and plan: EPCD - Time Spent With Patient Total time spent is greater than 50% in coordination of care (as documented) at patient's floor/unit and/or counseling patient: - Subjective Interval history: Patient complaining this morning of left-sided abdominal pain Acute abdominal series without any findings of obstruction - Constitutional Vitals: Temp Pulse Resp BP Pulse Ox 98.1 F 67 16 108/75 93 09/04/17 15:13 09/04/17 15:13 09/04/17 15:13 09/04/17 15:13 09/04/17 15:13 General appearance: Present: A&O X 3, no acute distress, answers questions appropriately - Respiratory Respiratory exam: Present: CTAB. Absent: accessory muscle use, rales, rhonchi, wheezes - Cardiovascular Cardiovascular exam: Present: RRR, +S1, +S2. Absent: diastolic murmur, gallop, rubs, systolic murmur - GI/Abdominal GI/Abdominal exam: Present: distended, soft, tenderness (Left-sided tenderness to palpation) Internal Medicine: Result - Labs CBC & Chem 7: 09/04/17 04:45 09/04/17 04:45 Labs: Short CBC 09/04/17 Range/Units 04:45 WBC 5.3 (4.3-11.1) K/mcL Hgb 12.6 D (11.5-15.4) g/dL Hct 39.1 (35.3-44.9) % Plt Count 90 L (140-400) K/mcL BMP 09/04/17 04:45 Sodium 140 Potassium 4.5 Chloride 110 H Carbon Dioxide 23 BUN 9 Creatinine 0.77 Glucose 91 Calcium 8.1 L - ABG Interpretation ABG results: PT/INR, D-dimer PT 11.4 Seconds (9.4-12.1) 09/02/17 06:05 - Impressions Impressions Chest/Abdomen X-ray 09/04/17 11:01 IMPRESSION: 1. Findings suggestive of presence of minimal right basilar parenchymal disease/atelectasis. 2. Minimally abnormal but nonspecific bowel gas pattern. No radiographic findings to suggest presence of obstruction. D/ / 09/04/2017 11:42:00 Nash Chen MD / [facility] Interpreting Provider: Nash Chen MD Consult Discharge Plan - Plan Referrals: Juve Becerril MD [Primary Care Provider] - 09/13/17 1:15 pm
[2017-09-04] MEDS: cloNIDine HCl 0.1 MG TABLET PO SCH (20:36)
[2017-09-05] MEDS: 0.9 % Sodium Chloride 1,000 ML IVC SCH ×2 (01:37→16:28)
[2017-09-05] MEDS: Ondansetron ODT 4 MG TAB.RAPDIS SL PRN (01:38)
[2017-09-05] MEDS: OXYCODONE Oral CONC 10 MG/0.5 ML ORAL.SYG SL PRN ×2 (01:38→08:22)
[2017-09-05] MEDS: metroNIDAZOLE 500 MG TABLET PO SCH ×3 (07:58→19:35)
[2017-09-05] MEDS: Gabapentin 300 MG CAPSULE PO SCH ×3 (07:58→19:36)
[2017-09-05] MEDS: Diltiazem CD (24hr) 120 MG CAPSULE PO SCH (07:58)
[2017-09-05] MEDS: carBAMazepine 200 MG TABLET PO SCH ×2 (07:58→19:35)
[2017-09-05] MEDS: ALPRAZolam 1 MG TABLET PO PRN ×2 (08:00→19:38)
[2017-09-05] MEDS: Nicotine 14 MG PATCH.TD24 TD SCH (08:00)
[2017-09-05] MEDS: *HR* Promethazine 25 MG/ML VIAL IVP PRN ×2 (08:21→19:36)
[2017-09-05 10:57] LABS: Basophils % 0.3 %; Eosinophils # 0.3 K/mcL (0.0-0.6); Eosinophils % 4.7 %; Hematocrit 35.7 % (35.3-44.9); Immature Granulocytes % 0.3 % (0-4); Lymphocytes # 2.2 K/mcL (0.6-4.6); Lymphocytes % 36.2 %; Mean Corpuscular HGB Conc 33.6 g/dL (31.6-35.5); Mean Corpuscular Hemoglobin 31.6 pg (28.0-33.3); Mean Corpuscular Volume 93.9 fL (83.0-100.0); Mean Platelet Volume 9.9 fL (9.4-12.4); Monocytes # 0.4 K/mcL (0.0-1.3); Monocytes % 6.6 %; Neutrophils # 3.1 K/mcL (1.6-8.9); Platelet Count 142 K/mcL (140-400); Red Cell Distribution Width 12.2 % (11.5-14.5); Segmented Neutrophils % 51.9 %
[2017-09-05 11:16] LABS: BUN/Creatinine Ratio 9 (6-26); Blood Urea Nitrogen 8 mg/dL (6-20); Calcium 8.2 mg/dL (8.6-10.3); Carbon Dioxide 28 mEq/L (23-29); Chloride 108 mEq/L (98-107); Glucose 103 mg/dL (70-105); Osmolality,Calculated 289 (280-300); Potassium 4.1 mEq/L (3.5-5.1); Sodium 140 mEq/L (136-145); eGFR For African Americans > 60 (> 60); eGFR For Non-African Americans > 60 (> 60)
[2017-09-05] MEDS: Ondansetron 4 MG/2 ML VIAL IVP PRN (13:19)
[2017-09-05] MEDS: Ketorolac 30 MG/ML VIAL IVP PRN ×2 (13:20→19:36)
--- NOTE | 2017-09-05 16:28 | Internal Med Progress Note ---
Date of Encounter: 09/05/17 Time of Encounter: 11:00 - Assessment and plan (1) Abdominal pain Current Visit: Yes Status: Acute Assessment and plan: Patient continues to complain of left-sided abdominal pain with guarding on exam and evidence of peritoneal signs Repeat CT of the abdomen showed a nonobstructing 2-3 mm lower pole left renal pelvic stone without signs of hydronephrosis; otherwise negative CT Will consult urology and appreciate recommendations Qualifiers: Abdominal location: generalized Qualified Code(s): R10.84 - Generalized abdominal pain (2) Colitis Current Visit: Yes Status: Acute Assessment and plan: Patient with continued left sided abdominal pain this morning -CT of the abdomen on 09/01/17 showed mild wall thickening involving the distal descending colon and sigmoid colon; ischemic versus infectious colitis. -Acute abdominal series on 09/04/17 showed no acute findings and negative for bowel obstruction -Repeat CT of the abdomen on 09/05/17 showed a nonobstructing 2-3 mm lower pole left renal pelvic stone without signs of hydronephrosis; otherwise negative CT GI following with recommendations for EGD which showed no acute findings Recommendations to continue Cipro/Flagyl and colonoscopy as an outpatient in 6- 8 weeks Will continue current management (3) Rectal bleeding Current Visit: Yes Status: Acute Assessment and plan: Suspect secondary to infectious colitis. Patient has stable H&H and vitals at this point. Continue colitis treatment with Cipro and Flagyl Closely monitor H&H and vitals (4) A-fib Current Visit: Yes Status: Acute Assessment and plan: Patient takes aspirin only for anticoagulation at home. Will hold asa for a week due to lower GI bleed above Qualifiers: Atrial fibrillation type: paroxysmal Qualified Code(s): I48.0 - Paroxysmal atrial fibrillation (5) Diabetes Current Visit: Yes Status: Acute Assessment and plan: Patient is on diet control only at home. Continue closely monitor glucose level Qualifiers: Diabetes mellitus type: type 2 Diabetes mellitus rodent exterminator insulin use: without residential use Diabetes mellitus complication status: without complication Qualified Code(s): E11.9 - Type 2 diabetes mellitus without complications (6) Hypertension Current Visit: Yes Status: Acute Assessment and plan: Continue home medications. Closely monitor BP Qualifiers: Hypertension type: essential hypertension Qualified Code(s): I10 - Essential (primary) hypertension (7) COPD (chronic obstructive pulmonary disease) Current Visit: Yes Status: Acute Assessment and plan: Stable; continue bronchodilator as needed Qualifiers: COPD type: emphysema Emphysema type: unspecified Qualified Code(s): J43.9 - Emphysema, unspecified (8) DVT prophylaxis Current Visit: Yes Status: Acute Assessment and plan: EPCD - Time Spent With Patient Total time spent is greater than 50% in coordination of care (as documented) at patient's floor/unit and/or counseling patient: - Subjective Interval history: Patient continues to complain this morning of left-sided abdominal pain - Constitutional Vitals: Temp Pulse Resp BP Pulse Ox 98.1 F 59 16 105/70 96 09/05/17 14:58 09/05/17 14:58 09/05/17 14:58 09/05/17 14:58 09/05/17 14:58 General appearance: Present: A&O X 3, no acute distress, answers questions appropriately - Respiratory Respiratory exam: Present: CTAB. Absent: accessory muscle use, rales, rhonchi, wheezes - Cardiovascular Cardiovascular exam: Present: RRR, +S1, +S2. Absent: diastolic murmur, gallop, rubs, systolic murmur - GI/Abdominal GI/Abdominal exam: Present: guarding (Generalized tenderness to palpation with peritoneal signs), soft. Absent: distended Internal Medicine: Result - Labs CBC & Chem 7: 09/05/17 10:23 09/05/17 10:23 Labs: Short CBC 09/05/17 Range/Units 10:23 WBC 6.0 (4.3-11.1) K/mcL Hgb 12.0 (11.5-15.4) g/dL Hct 35.7 (35.3-44.9) % Plt Count 142 D (140-400) K/mcL Neutrophils # 3.1 (1.6-8.9) K/mcL BMP 09/05/17 10:23 Sodium 140 Potassium 4.1 Chloride 108 H Carbon Dioxide 28 BUN 8 Creatinine 0.88 Glucose 103 Calcium 8.2 L - ABG Interpretation ABG results: PT/INR, D-dimer PT 11.4 Seconds (9.4-12.1) 09/02/17 06:05 - Impressions Impressions Chest/Abdomen X-ray 09/04/17 11:01 IMPRESSION: 1. Findings suggestive of presence of minimal right basilar parenchymal disease/atelectasis. 2. Minimally abnormal but nonspecific bowel gas pattern. No radiographic findings to suggest presence of obstruction. D/ / 09/04/2017 11:42:00 Nash Chen MD / [facility] Interpreting Provider: Nash Chen MD Abdomen/Pelvis CT 09/05/17 15:30 IMPRESSION: Left nephrolithiasis. Otherwise negative noncontrast study. D/ / Leatha Cox Cha, MD / Leatha Cox Cha, MD Interpreting Provider: Leatha Cox Cha, MD Consult Discharge Plan - Plan Referrals: Juve Becerril MD [Primary Care Provider] - 09/13/17 1:15 pm
[2017-09-05] MEDS: cloNIDine HCl 0.1 MG TABLET PO SCH (19:36)
[2017-09-05] MEDS ORDERED: OXYCODONE Oral CONC 10 MG/0.5 ML ORAL.SYG SL ONE (20:43)
[2017-09-06] MEDS: 0.9 % Sodium Chloride 1,000 ML IVC SCH ×2 (04:21→15:48)
[2017-09-06] MEDS: Ketorolac 30 MG/ML VIAL IVP PRN ×4 (04:21→23:12)
--- NOTE | 2017-09-06 07:15 | Urology - Consult Note ---
Date of Encounter: 09/06/17 Time of Encounter: 07:13 - Assessment and Plan (1) Calculus of left kidney Current Visit: Yes Status: Acute Assessment and plan: Patient has small left lower pole renal stone without any obstruction. This is not causing her discomfort. Patient can follow up with urology as needed. I discussed with the patient dietary modifications which are associated with decreasing kidney stone formation. Urology CN:HPI Consult date: 09/06/17 Reason for consult Urology: Other (left kidney stone) Requesting physician: Luis Ro History of present illness: Barbara is a 51-year-old female with a history of admission to the hospital secondary to abdominal pain is found to have colitis. Patient had a CT scan done upon arrival to the hospital which revealed a left 2-3mm left lower pole kidney stone. Patient's pain is mostly located in the left anterior abdomen with some radiation towards her left lower quadrant. Pain is currently a 6 and a 10 sharp in nature. Patient currently denies any nausea or vomiting. No fevers. Past Med Surg Social Fam HX - Past Medical History Medical history: atrial fibrillation, diabetes, hypertension, other Psychiatric history: anxiety, bipolar, depression - Past Surgical History Surgical History: , hysterectomy - Social History Smoking Status: Current every day smoker Packs per day: 1 Smokeless Tobacco Status: No Alcohol use: none Drug use: none - Family History Mother Hx Family Cardiac Disorders: Yes Hx Family Endocrine Disorder: Yes Father Hx Family Cardiac Disorders: Yes Hx Family Cancer: Yes (prostate ca) Hx Family Endocrine Disorder: Yes Medications and Allergies ALPRAZolam [Xanax 1 MG Tablet] 0.5 - 1 mg PO BID PRN 05/15/15 [History] Diltiazem CD (24hr) [Cardizem CD] 120 mg PO DAILY 05/15/15 [History] Ipratropium/Albuterol Neb [Duoneb] 3 ml IH Q4HR PRN #50 vial.neb 04/15/16 [Rx] Albuterol Sulfate [Albuterol Inhaler] 2 puff IH QID PRN 05/13/16 [History] Gabapentin [Neurontin] 300 mg PO TID 05/13/16 [History] Pantoprazole Sodium [Protonix] 40 mg PO DAILY 05/13/16 [History] Doxepin [Sinequan] 25 mg PO DAILY 09/01/17 [History] HydrOXYzine Pamoate [Vistaril] 50 mg PO TID PRN 09/01/17 [History] Promethazine [Phenergan] 25 mg PO Q8HR PRN 09/01/17 [History] Quetiapine Fumarate [SEROquel] 100 mg PO HS 09/01/17 [History] carBAMazepine [Tegretol] 200 mg PO BID 09/01/17 [History] cloNIDine HCl [CloNIDine HCl] 0.1 mg PO DAILY 09/01/17 [History] 3 Allergy/AdvReac Type Severity Reaction Status Date / Time celecoxib Allergy See Verified 09/01/17 13:46 Comments oxcarbazepine Allergy See Verified 09/01/17 13:46 Comments rofecoxib Allergy See Verified 09/01/17 13:46 Comments [id number] Reductase Allergy Rash Verified 09/01/17 13:46 Inhibitor [Statins] Review of Systems - Constitutional no chills, no fever(s) - EENT Nose, mouth and throat: no dizziness, no throat swelling - Cardiovascular no chest pain - Respiratory no cough - Gastrointestinal abdominal pain - Musculoskeletal no back pain - Integumentary no erythema, no swelling - Neurological no confusion Exam Initial Vital Signs Temp Pulse Resp BP Pulse Ox 98.1 F 74 18 125/87 98 09/01/17 13:44 09/01/17 13:44 09/01/17 13:44 09/01/17 13:44 09/01/17 13:44 General/Neuological: alert and oriented x 3 Eyes: normal pupils, non-icteric Neck: no lymphadenopathy noted, supple to touch ABD: soft, tender to palpation in left side, patient very guarded without allowing me deep palpation, no masses palpated, good bowel sounds Back: no pain on percussion bilaterally Skin: no rashes noted Musculoskeletal: normal gait, FROMx4 Urology Results - Labs 09/05/17 10:23 09/05/17 10:23 Abnormal lab results RBC 3.80 M/mcL (3.82-4.97) L 09/05/17 10:23 Nucleated RBCs/100 WBC 0.2 /100 WBC (0) H 09/01/17 14:52 Immature Plt Fraction 7.1 % (1.1-6.1) H 09/04/17 04:45 Chloride 108 mEq/L (98-107) H 09/05/17 10:23 POC Glucose 105 mg/dL (70-99) H 09/04/17 07:55 Calcium 8.2 mg/dL (8.6-10.3) L 09/05/17 10:23 Ur Specific [place] > 1.030 (1.010-1.025) H 09/01/17 16:30 Diabetes panel 09/05/17 Range/Units 10:23 Sodium 140 (136-145) mEq/L Potassium 4.1 (3.5-5.1) mEq/L Chloride 108 H (98-107) mEq/L Carbon Dioxide 28 (23-29) mEq/L BUN 8 (6-20) mg/dL Creatinine 0.88 (0.60-1.20) mg/dL Glucose 103 (70-105) mg/dL Calcium 8.2 L (8.6-10.3) mg/dL Calcium panel 09/05/17 Range/Units 10:23 Calcium 8.2 L (8.6-10.3) mg/dL Pituitary panel 09/05/17 Range/Units 10:23 Sodium 140 (136-145) mEq/L Potassium 4.1 (3.5-5.1) mEq/L Chloride 108 H (98-107) mEq/L Carbon Dioxide 28 (23-29) mEq/L BUN 8 (6-20) mg/dL Creatinine 0.88 (0.60-1.20) mg/dL Glucose 103 (70-105) mg/dL Calcium 8.2 L (8.6-10.3) mg/dL Adrenal panel 09/05/17 Range/Units 10:23 Sodium 140 (136-145) mEq/L Potassium 4.1 (3.5-5.1) mEq/L Chloride 108 H (98-107) mEq/L Carbon Dioxide 28 (23-29) mEq/L BUN 8 (6-20) mg/dL Creatinine 0.88 (0.60-1.20) mg/dL Glucose 103 (70-105) mg/dL Calcium 8.2 L (8.6-10.3) mg/dL All other labs normal. - Imaging CT scan - abdomen: image reviewed CT scan - pelvis: image reviewed Consult Discharge Plan - Plan Referrals: Juve Becerril MD [Primary Care Provider] - 09/13/17 1:15 pm
[2017-09-06] MEDS: Diltiazem CD (24hr) 120 MG CAPSULE PO SCH (08:18)
[2017-09-06] MEDS: metroNIDAZOLE 500 MG TABLET PO SCH ×3 (08:18→20:02)
[2017-09-06] MEDS: carBAMazepine 200 MG TABLET PO SCH ×2 (08:19→20:02)
[2017-09-06] MEDS: Gabapentin 300 MG CAPSULE PO SCH ×3 (08:19→20:03)
[2017-09-06] MEDS: Nicotine 14 MG PATCH.TD24 TD SCH (08:19)
[2017-09-06 09:04] LABS: Basophils % 0.6 %; Eosinophils # 0.4 K/mcL (0.0-0.6); Eosinophils % 5.7 %; Hematocrit 42.9 % (35.3-44.9); Immature Granulocytes % 0.3 % (0-4); Lymphocytes # 2.5 K/mcL (0.6-4.6); Lymphocytes % 36.8 %; Mean Corpuscular HGB Conc 32.6 g/dL (31.6-35.5); Mean Corpuscular Hemoglobin 31.1 pg (28.0-33.3); Mean Corpuscular Volume 95.3 fL (83.0-100.0); Mean Platelet Volume 10.1 fL (9.4-12.4); Monocytes # 0.4 K/mcL (0.0-1.3); Monocytes % 6.3 %; Neutrophils # 3.4 K/mcL (1.6-8.9); Platelet Count 149 K/mcL (140-400); Red Cell Distribution Width 12.2 % (11.5-14.5); Segmented Neutrophils % 50.3 %
[2017-09-06 09:09] LABS: BUN/Creatinine Ratio 9 (6-26); Blood Urea Nitrogen 7 mg/dL (6-20); Carbon Dioxide 28 mEq/L (23-29); Chloride 109 mEq/L (98-107); Glucose 91 mg/dL (70-105); Osmolality,Calculated 288 (280-300); Potassium 4.3 mEq/L (3.5-5.1); Sodium 140 mEq/L (136-145); eGFR For African Americans > 60 (> 60); eGFR For Non-African Americans > 60 (> 60)
[2017-09-06] MEDS: *HR* Promethazine 25 MG/ML VIAL IVP PRN ×2 (09:39→15:47)
[2017-09-06] MEDS: Ondansetron ODT 4 MG TAB.RAPDIS SL PRN ×2 (13:55→22:15)
[2017-09-06] MEDS: Pantoprazole 40 MG VIAL IVP SCH (13:55)
--- NOTE | 2017-09-06 14:41 | Gastroenterology Progress Note ---
<Aga Lujan - Last Filed: 09/06/17 14:36> Date of Encounter: 09/06/17 Time of Encounter: 08:30 - Assessment and plan (1) Colitis Status: Acute Assessment and plan: CT A/P 09/01 with mild wall thickening involving the distal descending colon and sigmoid colon. Ischemic vs infectious colitis. Continue Cipro and Flagyl. Plan for colonoscopy in 6-8 weeks as outpatient. Follow up in GI office in 2-4 weeks. Continue IV fluids, advance diet as tolerated. - Time Spent With Patient Total time spent is greater than 50% in coordination of care (as documented) at patient's floor/unit and/or counseling patient: - Subjective Interval history: Pt is awake in bed. She continues to complain of left upper quadrant pain that radiates down her side. She reports poor appetite, and is trying to sip on liquids. She has continued nausea. She denies vomiting. She denies fever or chills. She denies rectal bleeding. - Constitutional Vitals: Temp Pulse Resp BP Pulse Ox 97.7 F 61 16 116/73 95 09/06/17 11:04 09/06/17 11:04 09/06/17 11:04 09/06/17 11:04 09/06/17 11:04 General appearance: Present: cooperative, A&O X 3, no acute distress, answers questions appropriately Exam: CONSTITUTIONAL:~alert, no acute distress.~HEAD:~normocephalic.~EYES:~no jaundice.~NECK:~no obvious swelling.~HEART:~regular rate and rhythm, no murmurs. ~LUNGS:~bilateral good air entry.~ABDOMEN:~distended, soft, very tender on the left, no masses palpable, no organomegaly.~RECTAL EXAM:~Deferred.~EXTREMITIES:~ no clubbing, cyanosis or edema.~SKIN:~no stigmata of chronic liver disease.~ NEUROLOGIC:~no obvious focal defect.~~~~ Results - Labs CBC & Chem 7: 09/06/17 08:17 09/06/17 08:17 Labs: Last Result Calcium 8.0 mg/dL (8.6-10.3) L 09/06/17 08:17 Entire Visit Hgb 14.0 g/dL (11.5-15.4) D 09/06/17 08:17 Hct 42.9 % (35.3-44.9) 09/06/17 08:17 PT 11.4 Seconds (9.4-12.1) 09/02/17 06:05 Total Bilirubin 0.5 mg/dL (0.3-1.0) 09/01/17 14:52 AST 14 Units/L (13-39) 09/01/17 14:52 ALT 12 Units/L (7-52) 09/01/17 14:52 Lipase 23 Units/L (11-82) 09/01/17 14:52 - ABG ABG results: PT/INR, D-dimer PT 11.4 Seconds (9.4-12.1) 09/02/17 06:05 - Impressions Impressions Abdomen/Pelvis CT 09/05/17 15:30 IMPRESSION: Left nephrolithiasis. Otherwise negative noncontrast study. D/ / Leatha Cox Cha, MD / Leatha Cox Cha, MD Interpreting Provider: Leatha Cox Cha, MD Consult Discharge Plan - Plan Referrals: Juve Becerril MD [Primary Care Provider] - 09/13/17 1:15 pm Isac Mendez MD [Partnered Physician] - (in 6-8 weeks for colonoscopy) Prescriptions: Ciprofloxacin [Cipro] 500 mg PO BID #10 tablet metroNIDAZOLE [Flagyl] 500 mg PO TID #21 tablet <Rodri Lozada - Last Filed: 09/15/17 05:26> Date of Encounter: 09/06/17 - Time Spent With Patient Total time spent is greater than 50% in coordination of care (as documented) at patient's floor/unit and/or counseling patient: - Constitutional Vitals: Temp Pulse Resp BP Pulse Ox 97.9 F 69 14 128/84 97 09/07/17 11:50 09/07/17 11:50 09/07/17 11:50 09/07/17 11:50 09/07/17 11:50 Results - Labs CBC & Chem 7: 09/06/17 08:17 09/06/17 08:17 Labs: Last Result Calcium 8.0 mg/dL (8.6-10.3) L 09/06/17 08:17 Entire Visit Hgb 14.0 g/dL (11.5-15.4) D 09/06/17 08:17 Hct 42.9 % (35.3-44.9) 09/06/17 08:17 PT 11.4 Seconds (9.4-12.1) 09/02/17 06:05 Total Bilirubin 0.5 mg/dL (0.3-1.0) 09/01/17 14:52 AST 14 Units/L (13-39) 09/01/17 14:52 ALT 12 Units/L (7-52) 09/01/17 14:52 Lipase 23 Units/L (11-82) 09/01/17 14:52 - ABG ABG results: PT/INR, D-dimer PT 11.4 Seconds (9.4-12.1) 09/02/17 06:05 - Attending Attestation Suspect ischemic colitis. Follow up as outpatient. I have personally performed a face to face evaluation on this patient. I have reviewed and agree with the care plan. History and Exam by me shows:
[2017-09-06 17:12] LABS: Adenovirus F 40/41 PCR Not detected (Not detect); Astrovirus PCR Not detected (Not detect); Campylobacter by PCR Not detected (Not detect); Cryptosporidium by PCR Not detected (Not detect); Cyclospora cayetanensis PCR Not detected (Not detect); E. coli O157 by PCR Not detected (Not detect); Entamoeba histolytica PCR Not detected (Not detect); Enteroaggregative E.coli(EAEC) Not detected (Not detect); Enteropathogenic E.coli(EPEC) Not detected (Not detect); Enterotoxigenic E.coli (ETEC) Not detected (Not detect); Giardia lamblia PCR Not detected (Not detect); Norovirus GI/GII PCR Not detected (Not detect); Plesiomonas shigelloides PCR Not detected (Not detect); Rotavirus A PCR Not detected (Not detect); Salmonella PCR Not detected (Not detect); Sapovirus PCR Not detected (Not detect); Shig/EnteroinvasiveE coli EIEC Not detected (Not detect); Shigalike tox-prod E coli STEC Not detected (Not detect); Vibrio PCR Not detected (Not detect); Vibrio cholerae PCR Not detected (Not detect); Yersinia enterocolitica PCR Not detected (Not detect)
--- NOTE | 2017-09-06 18:21 | Internal Med Progress Note ---
Date of Encounter: 09/06/17 Time of Encounter: 11:00 - Assessment and plan (1) Abdominal pain Current Visit: Yes Status: Acute Assessment and plan: Patient with no improvement in abdominal pain this morning -CT of the abdomen on 09/01/17 showed mild wall thickening involving the distal descending colon and sigmoid colon; ischemic versus infectious colitis. -Acute abdominal series on 09/04/17 showed no acute findings and negative for bowel obstruction -Repeat CT of the abdomen on 09/05/17 showed a nonobstructing 2-3 mm lower pole left renal pelvic stone without signs of hydronephrosis; otherwise negative CT GI following with recommendations for EGD which showed no acute findings Recommendations to continue Cipro/Flagyl and colonoscopy as an outpatient in 6- 8 weeks Will continue current management Qualifiers: Abdominal location: generalized Qualified Code(s): R10.84 - Generalized abdominal pain (2) Colitis Current Visit: Yes Status: Acute Assessment and plan: Recommendations to continue Cipro/Flagyl and colonoscopy as an outpatient in 6- 8 weeks (3) Rectal bleeding Current Visit: Yes Status: Acute Assessment and plan: Suspect secondary to infectious colitis. Patient has stable H&H and vitals at this point. Continue colitis treatment with Cipro and Flagyl Closely monitor H&H and vitals (4) A-fib Current Visit: Yes Status: Acute Assessment and plan: Patient takes aspirin only for anticoagulation at home. Will hold asa for a week due to lower GI bleed above Qualifiers: Atrial fibrillation type: paroxysmal Qualified Code(s): I48.0 - Paroxysmal atrial fibrillation (5) Diabetes Current Visit: Yes Status: Acute Assessment and plan: Patient is on diet control only at home. 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 Closely monitor BP Qualifiers: Hypertension type: essential hypertension Qualified Code(s): I10 - Essential (primary) hypertension (7) COPD (chronic obstructive pulmonary disease) Current Visit: Yes Status: Acute Assessment and plan: Stable; continue bronchodilator as needed Qualifiers: COPD type: emphysema Emphysema type: unspecified Qualified Code(s): J43.9 - Emphysema, unspecified - Time Spent With Patient Total time spent is greater than 50% in coordination of care (as documented) at patient's floor/unit and/or counseling patient: - Subjective Interval history: Patient with continued left sided abdominal pain this morning -CT of the abdomen on 09/01/17 showed mild wall thickening involving the distal descending colon and sigmoid colon; ischemic versus infectious colitis. -Acute abdominal series on 09/04/17 showed no acute findings and negative for bowel obstruction -Repeat CT of the abdomen on 09/05/17 showed a nonobstructing 2-3 mm lower pole left renal pelvic stone without signs of hydronephrosis; otherwise negative CT - Constitutional Vitals: Temp Pulse Resp BP Pulse Ox 97.9 F 57 16 117/81 98 09/06/17 15:35 09/06/17 15:35 09/06/17 15:35 09/06/17 15:35 09/06/17 15:35 General appearance: Present: A&O X 3, no acute distress, answers questions appropriately - Respiratory Respiratory exam: Present: CTAB. Absent: accessory muscle use, rales, rhonchi, wheezes - Cardiovascular Cardiovascular exam: Present: RRR, +S1, +S2. Absent: diastolic murmur, gallop, rubs, systolic murmur - GI/Abdominal GI/Abdominal exam: Present: normal bowel sounds, soft, tenderness (Generalized abdominal tenderness). Absent: no peritoneal signs Internal Medicine: Result - Labs CBC & Chem 7: 09/06/17 08:17 09/06/17 08:17 Labs: Short CBC 09/06/17 Range/Units 08:17 WBC 6.7 (4.3-11.1) K/mcL Hgb 14.0 D (11.5-15.4) g/dL Hct 42.9 (35.3-44.9) % Plt Count 149 (140-400) K/mcL Neutrophils # 3.4 (1.6-8.9) K/mcL BMP 09/06/17 08:17 Sodium 140 Potassium 4.3 Chloride 109 H Carbon Dioxide 28 BUN 7 Creatinine 0.80 Glucose 91 Calcium 8.0 L - ABG Interpretation ABG results: PT/INR, D-dimer PT 11.4 Seconds (9.4-12.1) 09/02/17 06:05 Consult Discharge Plan - Plan Referrals: Juve Becerril MD [Primary Care Provider] - 09/13/17 1:15 pm
[2017-09-06] MEDS: cloNIDine HCl 0.1 MG TABLET PO SCH (20:03)
[2017-09-06] MEDS: ALPRAZolam 1 MG TABLET PO PRN (22:15)
[2017-09-07] MEDS: *HR* Heparin 5,000 UNIT/ML VIAL SQ SCH ×3 (01:17→13:56)
[2017-09-07] MEDS: Ketorolac 30 MG/ML VIAL IVP PRN ×2 (05:11→10:54)
[2017-09-07] MEDS: Nicotine 14 MG PATCH.TD24 TD SCH (08:08)
[2017-09-07] MEDS: 0.9 % Sodium Chloride 1,000 ML IVC SCH (08:08)
[2017-09-07] MEDS: Diltiazem CD (24hr) 120 MG CAPSULE PO SCH (08:10)
[2017-09-07] MEDS: Gabapentin 300 MG CAPSULE PO SCH ×2 (08:11→13:56)
[2017-09-07] MEDS: ALPRAZolam 1 MG TABLET PO PRN (08:11)
[2017-09-07] MEDS: carBAMazepine 200 MG TABLET PO SCH (08:11)
[2017-09-07] MEDS: Pantoprazole 40 MG VIAL IVP SCH (08:11)
[2017-09-07] MEDS: Ondansetron ODT 4 MG TAB.RAPDIS SL PRN (08:11)
[2017-09-07] MEDS: metroNIDAZOLE 500 MG TABLET PO SCH ×2 (08:11→13:56)
[2017-09-07] MEDS: *HR* Promethazine 25 MG/ML VIAL IVP PRN (10:54)
[2017-09-07 11:56] VITALS: BP 128/84
--- NOTE | 2017-09-07 13:31 | Discharge Summary ---
- NOTES TO OUTPATIENT PROVIDER Notes to Outpatient Provider: Patient admitted with acute colitis. Underwent upper GI endoscopy which showed gastric polyps. Recommended to have outpatient colonoscopy in 6-8 weeks. Date of Encounter: 09/07/17 Time of Encounter: 10:20 - Discharge Diagnosis (1) Colitis Priority: Primary Status: Acute (2) A-fib Priority: Secondary Status: Acute Qualifiers: Atrial fibrillation type: paroxysmal Qualified Code(s): I48.0 - Paroxysmal atrial fibrillation (3) Diabetes Priority: Secondary Status: Acute Qualifiers: Diabetes mellitus type: type 2 Diabetes mellitus retirement insulin use: without parts counterman use Diabetes mellitus complication status: without complication Qualified Code(s): E11.9 - Type 2 diabetes mellitus without complications (4) Hypertension Priority: Secondary Status: Chronic Qualifiers: Hypertension type: essential hypertension Qualified Code(s): I10 - Essential (primary) hypertension (5) Rectal bleeding Priority: Secondary Status: Acute (6) COPD (chronic obstructive pulmonary disease) Priority: Secondary Status: Acute Qualifiers: COPD type: emphysema Emphysema type: unspecified Qualified Code(s): J43.9 - Emphysema, unspecified (7) Abdominal pain Priority: Secondary Status: Acute Qualifiers: Abdominal location: generalized Qualified Code(s): R10.84 - Generalized abdominal pain Hospital course: Ms. Abreu is a 51 year old female patient with a history of atrial fibrillation, diabetes and hypertension was hospitalized here with acute colitis. She did complain of bright red blood in her stools. She had significant left lower quadrant abdominal pain. She was kept nothing by mouth, treated with IV fluids and antibiotics. Her symptoms have slowly improved. She underwent upper GI endoscopy a few gastric polyps. These were biopsied. GI recommends outpatient colonoscopy in 6-8 weeks. Patient is now doing much better and is tolerating oral diet. Her pain is well controlled. She will be discharged on oral antibiotics to complete treatment for colitis. Discharge discussed with: patient, nurse - Time Spent with Patient Total time spent providing and/or coordinating discharge services: Greater than 30 minutes (35 min) - Discharge Medications Prescriptions: Ciprofloxacin [Cipro] 500 mg PO BID #10 tablet metroNIDAZOLE [Flagyl] 500 mg PO TID #21 tablet Home Medications: ALPRAZolam [Xanax 1 MG Tablet] 0.5 - 1 mg PO BID PRN 05/15/15 [History] Diltiazem CD (24hr) [Cardizem CD] 120 mg PO DAILY 05/15/15 [History] Ipratropium/Albuterol Neb [Duoneb] 3 ml IH Q4HR PRN #50 vial.neb 04/15/16 [Rx] Albuterol Sulfate [Albuterol Inhaler] 2 puff IH QID PRN 05/13/16 [History] Gabapentin [Neurontin] 300 mg PO TID 05/13/16 [History] Pantoprazole Sodium [Protonix] 40 mg PO DAILY 05/13/16 [History] Doxepin [Sinequan] 25 mg PO DAILY 09/01/17 [History] HydrOXYzine Pamoate [Vistaril] 50 mg PO TID PRN 09/01/17 [History] Promethazine [Phenergan] 25 mg PO Q8HR PRN 09/01/17 [History] Quetiapine Fumarate [Seroquel] 100 mg PO HS 09/01/17 [History] carBAMazepine [Tegretol] 200 mg PO BID 09/01/17 [History] cloNIDine HCl [CloNIDine HCl] 0.1 mg PO DAILY 09/01/17 [History] Ciprofloxacin [Cipro] 500 mg PO BID #10 tablet 09/07/17 [Rx] metroNIDAZOLE [Flagyl] 500 mg PO TID #21 tablet 09/07/17 [Rx] Allergies/Adverse Reactions: 3 Allergy/AdvReac Type Severity Reaction Status Date / Time celecoxib Allergy See Verified 09/01/17 13:46 Comments oxcarbazepine Allergy See Verified 09/01/17 13:46 Comments rofecoxib Allergy See Verified 09/01/17 13:46 Comments Tnyygpq-Tjw-Ncq Reductase Allergy Rash Verified 09/01/17 13:46 Inhibitor [Statins] Date of admission: 09/02/17 08:00 Primary care physician: Juve Becerril MD Consults: 09/05/17 17:11 Consult to Urology [CONS] Routine Consulting Provider: Urology Inge Reason for Consult: Nephrolithiasis Call Completed: No Discharging clinician: Gamal Pink Anticipated date of discharge: 09/07/17 - Constitutional Vitals: Temp Pulse Resp BP Pulse Ox 97.9 F 69 14 128/84 97 09/07/17 11:50 09/07/17 11:50 09/07/17 11:50 09/07/17 11:50 09/07/17 11:50 General appearance: Present: A&O X 3, no acute distress, answers questions appropriately - Neck Neck exam general surgery: Present: supple, trachea midline. Absent: lymphadenopathy - Respiratory Respiratory exam: Present: CTAB. Absent: accessory muscle use, rales, rhonchi, wheezes - Cardiovascular Cardiovascular exam: Present: RRR, +S1, +S2. Absent: diastolic murmur, gallop, rubs, systolic murmur - GI/Abdominal GI/Abdominal exam: Present: normal bowel sounds, soft, tenderness (left lower quadrant mild tenderness), no peritoneal signs. Absent: distended - Extremities Exam Extremities exam: Present: warm, radial pulses palpable and symmetrical. Absent : calf tenderness, cyanotic, pedal edema - Neurological Exam Neurological exam: Present: CN II-XII intact, oriented X3, no focal deficits, strengths equal and symetr throughout. Absent: facial droop, speech deficit - Skin Skin exam: Present: dry, intact - Patient Status Disposition: Home, Self-Care Condition: Good Functional capacity at discharge: independent ambulation Overall status at discharge: patient is progressing back to baseline - Discharge Instructions Follow Up With: Juve Becerril MD [Primary Care Provider] - 09/13/17 1:15 pm Isac Mendez MD [Partnered Physician] - (in 6-8 weeks for colonoscopy) - Diet and Activity Activity: increase activity as tolerated Diet: low fat, low cholesterol, low salt diet
== END 2017-09-07 14:36 | disposition home or self-care (01) | DRG 395 ==
LOC: 3ANU 13:39 → EMEROO 13:39 → SUATTDRO 17:14 → 3ANU 18:07 → SUATTDRO 09-02 08:00
PROVIDERS: ADMIT Internal Medicine; ATTEND Internal Medicine
PROC: ENDOEBX (2017-09-02 15:30)

== ENCOUNTER 2018-07-10 15:31 | Observation (INO) ==
[2018-07-10] MEDS ORDERED: Ipratropium/Albuterol Neb 3 ML IH ONE (15:57)
[2018-07-10] MEDS ORDERED: predniSONE 20 MG TABLET PO ONE (15:59)
--- NOTE | 2018-07-10 16:31 | Emergency Department Note ---
Disposition Clinical Impression: Chest pain Qualifiers: Chest pain type: unspecified Qualified Code(s): R07.9 - Chest pain, unspecified COPD (chronic obstructive pulmonary disease) Qualifiers: COPD type: unspecified COPD Qualified Code(s): J44.9 - Chronic obstructive pulmonary disease, unspecified Disposition: Still a Patient Referrals: NONE,PCP [Primary Care Provider] - General Adult HPI - General Chief complaint: ED Chest Pain Stated complaint: KALEN, chest pain Time Seen by Provider: 07/10/18 15:47 Nursing Notes Reviewed: Yes Vital Signs Reviewed: Yes - History of Present Illness HPI Narrative: ED attending attestation note: I examined this patient and my medical decision-making was reviewed with the emergency medicine resident Usman Smith. I agree with the documented findings, disposition and treatment plan as described except to the extent set forth below. Briefly: 52-year-old female smoker COPD home O2 at night only coffee shortness of breath with occasional dysesthesias across her body. GCS is 15 NIH's 0 nylon looks pretty wheezes or rhonchi. Patient getting oral steroids DuoNeb treatments chest x-ray screening labs and EKG. Providing 30 minutes critical care service this patient. Disposition pending Pain Scale: 4 - Related Data Home Medications Medication Instructions Recorded Confirmed ALPRAZolam [Xanax 1 MG Tablet] 0.5 - 1 mg PO BID PRN 05/15/15 09/01/17 Diltiazem CD (24hr) [Cardizem CD] 120 mg PO DAILY 05/15/15 09/01/17 Pantoprazole Sodium [Protonix] 40 mg PO DAILY 05/13/16 09/01/17 Doxepin [Sinequan] 25 mg PO DAILY 09/01/17 09/01/17 HydrOXYzine Pamoate [Vistaril] 50 mg PO TID PRN 09/01/17 09/01/17 Quetiapine Fumarate [Seroquel] 100 mg PO HS 09/01/17 09/01/17 cloNIDine HCl [CloNIDine HCl] 0.1 mg PO DAILY 09/01/17 09/01/17 Previous Rx's Medication Instructions Recorded Ipratropium/Albuterol Neb [Duoneb] 3 ml IH Q4HR PRN #50 vial.neb 04/15/16 Allergies Allergy/AdvReac Type Severity Reaction Status Date / Time celecoxib Allergy See Verified 01/10/19 19:49 Comments oxcarbazepine Allergy See Verified 06/02/18 19:49 Comments rofecoxib Allergy See Verified 06/02/18 19:49 Comments Zltdlld-Kzk-Vcq Reductase Allergy Rash Verified 06/02/18 19:49 Inhibitor [Statins] Past Medical History - Past Medical History Medical history: Reports: atrial fibrillation, COPD, hypertension Surgical history: Reports: , hysterectomy Psychiatric history: Reports: anxiety, bipolar, depression [employer] history: Reports: no [employer] history - Social History Smoking Status: Current every day smoker Smokeless Tobacco Status: No Alcohol use: Reports: none Drug use: Reports: none Physical Exam - General General appearance: alert, in no apparent distress Course Vital Signs Temperature 98.6 F 07/10/18 15:39 Pulse Rate 73 07/10/18 15:39 Respiratory Rate 16 07/10/18 15:39 Blood Pressure 145/93 07/10/18 15:39 O2 Sat by Pulse Oximetry 98 07/10/18 15:39 Temperature 98.6 F 07/10/18 15:39 Pulse Rate 73 07/10/18 15:39 Respiratory Rate 16 07/10/18 15:39 Blood Pressure 145/93 07/10/18 15:39 O2 Sat by Pulse Oximetry 98 07/10/18 15:39 Oxygen Delivery Oxygen Delivery Room Air
[2018-07-10 16:36] LABS: BUN/Creatinine Ratio 13 (6-26); Blood Urea Nitrogen 11 mg/dL (6-20); Calcium 9.4 mg/dL (8.6-10.3); Carbon Dioxide 28 mEq/L (23-29); Chloride 107 mEq/L (98-107); Glucose 114 mg/dL (70-105); Osmolality,Calculated 300 (280-300); Potassium 3.6 mEq/L (3.5-5.1); Sodium 145 mEq/L (136-145); eGFR For Non-African Americans > 60 (> 60)
[2018-07-10 16:37] LABS: Troponin I < 0.03 ng/mL (< 0.04)
[2018-07-10] MEDS ORDERED: Aspirin 81 MG TAB.CHEW PO STA (16:53)
[2018-07-10] MEDS ORDERED: Ondansetron 4 MG/2 ML VIAL IVP ONE (16:55)
--- NOTE | 2018-07-10 17:06 | Emergency Department Note ---
Disposition Clinical Impression: Chest pain Qualifiers: Chest pain type: unspecified Qualified Code(s): R07.9 - Chest pain, unspecified COPD (chronic obstructive pulmonary disease) Qualifiers: COPD type: unspecified COPD Qualified Code(s): J44.9 - Chronic obstructive pulmonary disease, unspecified Disposition: Admitted As Inpatient Condition: Fair Referrals: NONE,PCP [Non-Partnered Physician] - Forms: ED Satisfaction Letter Time of Disposition: 18:27 General Adult HPI - General Chief complaint: ED Chest Pain Stated complaint: KALEN, chest pain Time Seen by Provider: 07/10/18 15:47 Source: patient Mode of arrival: ambulatory Limitations: no limitations Nursing Notes Reviewed: Yes Vital Signs Reviewed: Yes - History of Present Illness HPI Narrative: Patient is a 52-year-old female with past medical history of atrial fibrillation, COPD, hypertension, PCI with no intervention presents immersed her for evaluation of shortness of breath and chest pain with a productive cough. She states that her chest pain has been going on intermittently on the left side for the past week and then she has had a productive cough over the last 48 hours. She does not have any reading treatments for at home. She describes a left-sided chest pain as an ache associated dyspnea and cough no other associated symptoms. She continues to smoke. States that her symptoms are made worse with exertion. Pain Scale: 4 - Related Data Home Medications Medication Instructions Recorded Confirmed ALPRAZolam [Xanax 1 MG Tablet] 0.5 - 1 mg PO BID PRN 05/15/15 09/01/17 Diltiazem CD (24hr) [Cardizem CD] 120 mg PO DAILY 05/15/15 09/01/17 Pantoprazole Sodium [Protonix] 40 mg PO DAILY 05/13/16 09/01/17 Doxepin [Sinequan] 25 mg PO DAILY 09/01/17 09/01/17 HydrOXYzine Pamoate [Vistaril] 50 mg PO TID PRN 09/01/17 09/01/17 Quetiapine Fumarate [Seroquel] 100 mg PO HS 09/01/17 09/01/17 cloNIDine HCl [CloNIDine HCl] 0.1 mg PO DAILY 09/01/17 09/01/17 Previous Rx's Medication Instructions Recorded Ipratropium/Albuterol Neb [Duoneb] 3 ml IH Q4HR PRN #50 vial.neb 04/15/16 Allergies Allergy/AdvReac Type Severity Reaction Status Date / Time celecoxib Allergy See Verified 06/02/18 19:49 Comments oxcarbazepine Allergy See Verified 06/02/18 19:49 Comments rofecoxib Allergy See Verified 06/02/18 19:49 Comments Cnmkmyt-Oln-Lwf Reductase Allergy Rash Verified 06/02/18 19:49 Inhibitor [Statins] All systems ED: reviewed and negative except as stated. Review of Systems: As Per HPI Constitutional: Denies: fever, chills Cardiovascular: Reports: dyspnea on exertion. Denies: chest pain, palpitations, edema, syncope, paroxysmal nocturnal dyspnea Respiratory: Reports: cough, dyspnea, wheezes, sputum production Gastrointestinal: Reports: nausea. Denies: abdominal pain, vomiting, diarrhea Genitourinary: Denies: urgency, dysuria, frequency Musculoskeletal: Denies: back pain, neck pain Integumentary: Denies: rash Past Medical History - Past Medical History Attestation: Yes The following information was validated with the patient. Medical history: Reports: atrial fibrillation, COPD, hypertension Surgical history: Reports: , hysterectomy Psychiatric history: Reports: anxiety, bipolar, depression WORK FROM HOME history: Reports: no WORK FROM HOME history - Social History Smoking Status: Current every day smoker Smokeless Tobacco Status: No Alcohol use: Reports: none Drug use: Reports: none Physical Exam CONSTITUTIONAL: A&O X 3. 88% on RA. No home oxygen. HEAD: Normocephalic; atraumatic EYES: PERRL, no scleral icterus NOSE: The nose is normal in appearance without rhinorrhea NECK: No JVD or distended neck veins RESP: Diminished throughout with wheezes in the upper and lower , rhonchi, or rales CARD: Regular rhythm, without murmurs, rub or gallop ABD: Non-distended; non-tender, soft, without rigidity, rebound or guarding,no pulsatile mass CHEST: Pain with palpation of the left chest. SKIN: Normal for age and race; warm and dry without diaphoresis ; no apparent lesions EXTREMITIES: Pulses are 2 plus and equal times 4 extremities, no peripheral edema or calf muscle pain - General General appearance: alert, in no apparent distress Course Course Narrative: Patient underwent evaluation for chest pain as well as her wheezing and productive cough. As far as her wheezing and productive cough or chest x-ray is negative she had improved aeration with breathing treatments and steroids. Her pulse ox improved to 91% on room air. She received aspirin in the ED her chest pain was reproducible however given her risk factors and her hypoxia ensure decision-making the patient felt more comfortable coming in the hospital for further treatment. EKG was nonischemic and her labs are otherwise unremarkable. Discussed the patient's case with Dr. Rand and she agreed to accept the patient the hospital. Vital Signs Temperature 98.6 F 07/10/18 15:39 Pulse Rate 73 07/10/18 15:39 Respiratory Rate 16 07/10/18 15:39 Blood Pressure 145/93 07/10/18 15:39 O2 Sat by Pulse Oximetry 98 07/10/18 15:39 Temperature 98.6 F 07/10/18 15:39 Pulse Rate 61 07/10/18 17:23 Respiratory Rate 14 07/10/18 17:23 Blood Pressure 120/82 07/10/18 17:23 O2 Sat by Pulse Oximetry 96 07/10/18 17:23 Oxygen Delivery Oxygen Delivery Room Air Medical Decision Making - Medical Records Medical records reviewed: Yes I reviewed the patient's medical records. - Lab Data Lab results reviewed: Yes I reviewed the patient's lab results. Result diagrams: 07/10/18 17:43 07/10/18 16:00 Lab Results 07/10/18 07/10/18 07/10/18 Range/Units 16:00 16:00 17:43 WBC 7.3 (4.3-11.1) K/mcL RBC 4.53 (3.82-4.97) M/mcL Hgb 13.7 (11.5-15.4) g/dL Hct 42.4 (35.3-44.9) % MCV 93.6 (83.0-100.0) fL MCH 30.2 (28.0-33.3) pg MCHC 32.3 (31.6-35.5) g/dL RDW 12.9 (11.5-14.5) % Plt Count 216 (140-400) K/mcL MPV 9.3 L (9.4-12.4) fL Immature Gran % 0.1 (0-4) % Seg Neutrophils % 43.2 % Lymphocytes % 46.0 % Monocytes % 6.9 % Eosinophils % 3.0 % Basophils % 0.8 % Neutrophils # 3.1 (1.6-8.9) K/mcL Lymphocytes # 3.4 (0.6-4.6) K/mcL Monocytes # 0.5 (0.0-1.3) K/mcL Eosinophils # 0.2 (0.0-0.6) K/mcL Basophils # 0.1 (0.0-0.2) K/mcL Sodium 145 (136-145) mEq/L Potassium 3.6 (3.5-5.1) mEq/L Chloride 107 (98-107) mEq/L Carbon Dioxide 28 (23-29) mEq/L BUN 11 (6-20) mg/dL Creatinine 0.83 (0.60-1.20) mg/dL Est GFR ( Amer) > 60 (> 60) Est GFR (Non-Af Amer) > 60 (> 60) BUN/Creatinine Ratio 13 (6-26) Glucose 114 H (70-105) mg/dL Calculated Osmolality 300 (280-300) Calcium 9.4 (8.6-10.3) mg/dL Troponin I < 0.03 (< 0.04) ng/mL Specimen Rejected Clotted - Radiology Data Radiology results reviewed: Yes I reviewed the patient's radiology results. Chest X-Ray 07/10/18 15:48 IMPRESSION: No acute cardiopulmonary disease. D/ / Smooth Medina MD / Smooth Medina MD Interpreting Provider: Smooth Medina MD - EKG Data EKG #1 EKG attestation: Yes I reviewed and interpreted this EKG. EKG results narrative: EKG done at 15:43 shows sinus rhythm at a rate of 66 bpm. Normal axis. Intervals within normal limits. No signs of ST elevation, ST depression or Q waves present.
[2018-07-10 18:00] LABS: Basophils # 0.1 K/mcL (0.0-0.2); Basophils % 0.8 %; Eosinophils # 0.2 K/mcL (0.0-0.6); Hematocrit 42.4 % (35.3-44.9); Hemoglobin 13.7 g/dL (11.5-15.4); Immature Granulocytes % 0.1 % (0-4); Lymphocytes # 3.4 K/mcL (0.6-4.6); Mean Corpuscular HGB Conc 32.3 g/dL (31.6-35.5); Mean Corpuscular Hemoglobin 30.2 pg (28.0-33.3); Mean Corpuscular Volume 93.6 fL (83.0-100.0); Mean Platelet Volume 9.3 fL (9.4-12.4); Monocytes # 0.5 K/mcL (0.0-1.3); Monocytes % 6.9 %; Neutrophils # 3.1 K/mcL (1.6-8.9); Platelet Count 216 K/mcL (140-400); Red Blood Count 4.53 M/mcL (3.82-4.97); Red Cell Distribution Width 12.9 % (11.5-14.5); Segmented Neutrophils % 43.2 %
[2018-07-10] MEDS ORDERED: Azithromycin 500 MG in D5% in Water 250 ML IVPB ONE (18:10)
[2018-07-10] MEDS ORDERED: Isovue-370 500 ML BOTTLE IVP ONE (20:37)
[2018-07-10] MEDS ORDERED: Acetaminophen 325 MG TABLET PO PRN (20:41)
[2018-07-10] MEDS ORDERED: *HR* HYDROcodone/Acet 5/325 mg TABLET PO PRN (20:41)
[2018-07-10] MEDS ORDERED: *HR* Promethazine 25 MG/ML VIAL IVP PRN (20:41)
[2018-07-10] MEDS ORDERED: Naloxone 0.4 MG/ML INJ IVP PRN (20:41)
[2018-07-10] MEDS ORDERED: Azithromycin 500 MG in D5% in Water 250 ML IVPB SCH (21:00)
[2018-07-10] MEDS: Levalbuterol Neb 1.25 MG/3 ML IH SCH (21:11)
--- NOTE | 2018-07-10 21:42 | Internal Med History&Physical ---
Date of Encounter: 07/10/18 Time of Encounter: 19:45 Internal Medicine - H&P: HPI Chief complaint: CP/SOB Admitted From: Emergency Dept Plans for Post Hospital Care: Home History of present illness: Ms. Abreu is a 52 year old female w/PMH of atrial fibrillation on aspirin only, COPD, hypertension, anxiety, and bipolar depression presents from the ED w/CC of shortness of breath that began yesterday as well as chest pain under her left breast that presented as wringing pressure that came on at rest. Patient reports pain worse with inspiration. No cardiac w/u hx. Patient does have history of COPD and is currently producing thick sputum from cough. Uses O2 2 L at home. Patient is current smoker who states she quit today is down to 9 cigarettes per day. Reports smoking 1 today. Reports history of DVT in left leg several years ago. History of atrial fibrillation only on aspirin d/t Coumadin not being able to be regulated. Reports pain is been present intermittently for the past week and is made worse with exertion. Alleviating factor: Rest. Patient does report some diaphoresis but also reports she has hot flashes currently. Patient denies recent illness, fever, chills, nausea, vomiting, headache, changes in vision, unusual bleeding, abdominal pain, diarrhea, constipation, numbness, tingling, dizziness, lightheadedness, pre- syncope, or syncope. Past Med Surg Social Fam HX - Past Medical History Source: patient, old records reviewed Medical history: atrial fibrillation (Only takes aspirin), COPD, DVT (Hx of DVT in LLE several years ago), hypertension Additional medical history: Gastric ulcer. Psychiatric history: anxiety, bipolar, depression - Past Surgical History Surgical History: , hysterectomy (Total) Additional surgical history: cardiac stentx1. cardiac ablation. lap - Social History Smoking Status: Current every day smoker Packs per day: 9 cigarettes daily. Reports quitting today Smokeless Tobacco Status: No Alcohol use: none Drug use: none Current living situation: Home Activity Level: Independent ambulation Recent Out of Country Travel Within the Last 8 Weeks: No Exposure or Possible Exposure to Illness During Travel: No - Family History Mother Race: Family Member Ethnicity: Non- Living Status: Still Living Hx Family Cardiac Disorders: Yes (CAD) Hx Family Respiratory Disorders: Yes (COPD) Hx Family Endocrine Disorder: Yes (DM) Father Race: Family Member Ethnicity: Non- Living Status: Age at : 71 Cause of : Bone cancer Hx Family Cardiac Disorders: Yes (CAD) Hx Family Respiratory Disorders: Yes (Emphysema) Hx Family Cancer: Yes (Bone cancer) Hx Family Endocrine Disorder: Yes (DM) Brother Race: Family Member Ethnicity: Non- Living Status: Age at : 34 Cause of : Metastatic liver cancer Hx Family Cancer: Yes (Metastatic liver/lung) Sister Race: Family Member Ethnicity: Non- Living Status: Still Living Hx Family Cardiac Disorders: Yes (HTN) Hx Family Respiratory Disorders: Yes (Asthma) Internal Medicine - H&P: Meds ALPRAZolam [Xanax 1 MG Tablet] 0.5 - 1 mg PO BID PRN 05/15/15 [History] Diltiazem CD (24hr) [Cardizem CD] 120 mg PO DAILY 05/15/15 [History] Ipratropium/Albuterol Neb [Duoneb] 3 ml IH Q4HR PRN #50 vial.neb 04/15/16 [Rx] Pantoprazole Sodium [Protonix] 40 mg PO DAILY 05/13/16 [History] Doxepin [Sinequan] 25 mg PO DAILY 09/01/17 [History] HydrOXYzine Pamoate [Vistaril] 50 mg PO TID PRN 09/01/17 [History] Quetiapine Fumarate [Seroquel] 100 mg PO HS 09/01/17 [History] cloNIDine HCl [CloNIDine HCl] 0.1 mg PO DAILY 09/01/17 [History] Allergy/AdvReac Type Severity Reaction Status Date / Time celecoxib Allergy See Verified 06/02/18 19:49 Comments oxcarbazepine Allergy See Verified 06/02/18 19:49 Comments rofecoxib Allergy See Verified 06/02/18 19:49 Comments Cvfpsdv-Nsz-Nib Reductase Allergy Rash Verified 06/02/18 19:49 Inhibitor [Statins] All Systems PM: A 10-system review of systems was performed and is negative for pertinent fi ndings except as documented above in the HPI. - Constitutional Constitutional: no chills, no fever(s), no night sweats - EENT Eyes: no change in vision, no discharge, no pain, no photophobia Ears: no ear discharge, no ear pain, no tinnitus Nose, mouth and throat: no dysphagia, no nasal discharge, no neck pain, no sore throat - Breasts Breasts: as per HPI - Cardiovascular Cardiovascular ROS IM: as per HPI, chest pain, diaphoresis, dyspnea, dyspnea on exertion, irregular heart rhythm (Afib), no lightheadedness, no palpitations, no syncope - Respiratory Respiratory: as per HPI, cough (W/thick sputum production), dyspnea on exertion, pain on inspiration, no dyspnea, no wheezing, no excessive phlegm production - Gastrointestinal Gastrointestinal: no abdominal pain, no diarrhea, no hematemesis, no hematochezia, no melena, no nausea, no vomiting - Genitourinary Genitourinary: no change in urinary stream, no dysuria, no flank pain, no hematuria Menstruation: as per HPI, post hysterectomy (Total) - Musculoskeletal Musculoskeletal ROS IM: no numbness, no tingling - Integumentary Integumentary IM: no rash, no unusual bruising - Neurological Neurological ROS: no confusion, no convulsions, no focal weakness, no numbness, no tingling, no tremor(s) - Psychiatric Psychiatric: as per HPI, anxiety, depression - Endocrine Endocrine IM: as per HPI, flushing - Hematologic/Lymphatic Hematologic/Lymphatic: no easy bruising - Allergic/Immunologic Allergic/Immunologic: as per HPI - Constitutional Vitals: Temp Pulse Resp BP Pulse Ox 98.6 F 67 18 144/96 96 07/10/18 15:39 07/10/18 19:39 07/10/18 21:24 07/10/18 21:24 07/10/18 21:24 General appearance: Present: cooperative, mild distress (SOB w/CP on inspiration), A&O X 3, pleasant, answers questions appropriately Exam: Issue examined at bedside in the ED. Patient short of breath on exam and coughing up thick sputum without color. Patient reports chest pain with deep inspiration and describes as a wringing pressure in chest when occurs. Patient denies any other symptoms or complaints at this time. VS: 98.6F temp, HR 67, RR 18, BP 144/96, SPO2 97% on 2 L via nasal cannula. - Head Head exam: Present: atraumatic, normocephalic - Eye Eye exam: Present: PERRL, conjuntiva pink, sclera anicteric Pupils: Present: PERRL - ENT ENT exam: Present: normal exam - Neck Neck exam general surgery: Present: normal inspection, supple, trachea midline. Absent: lymphadenopathy - Respiratory Respiratory exam: Present: wheezes (Bilaterally in all lobes). Absent: accessory muscle use, rales, rhonchi - Cardiovascular Cardiovascular exam: Present: RRR, +S1, +S2. Absent: diastolic murmur, gallop, rubs, systolic murmur - GI/Abdominal GI/Abdominal exam: Present: normal bowel sounds, soft, no peritoneal signs. Abs ent: distended, tenderness - Rectal Rectal exam: Present: deferred - Additional comments: exam deferred. - Extremities Exam Extremities exam: Present: warm, radial pulses palpable and symmetrical. Absent: calf tenderness, cyanotic, pedal edema - Back Exam Back exam: Present: normal inspection - Neurological Exam Neurological exam: Present: alert, CN II-XII intact, oriented X3, no focal deficits. Absent: pronater drift, facial droop, speech deficit - Psychiatric Psychiatric exam: Present: normal affect, normal mood - Skin Skin exam: Present: dry, intact Internal Med - H&P Results - Labs CBC & Chem 7: 07/10/18 17:43 07/10/18 16:00 Labs: Short CBC 07/10/18 Range/Units 17:43 WBC 7.3 (4.3-11.1) K/mcL Hgb 13.7 (11.5-15.4) g/dL Hct 42.4 (35.3-44.9) % Plt Count 216 (140-400) K/mcL Neutrophils # 3.1 (1.6-8.9) K/mcL BMP 07/10/18 16:00 Sodium 145 Potassium 3.6 Chloride 107 Carbon Dioxide 28 BUN 11 Creatinine 0.83 Glucose 114 H Calcium 9.4 Cardiac Enzymes 07/10/18 Range/Units 16:00 Troponin I < 0.03 (< 0.04) ng/mL - EKG Data EKG shows normal: sinus rhythm - EKG Data Prior EKG available for review: no EKG comments: 07/10/18 21:49 EKG dated 07/10/18 shows sinus rhythm with probable left atrial enlargement, incomplete RBBB, and low voltage in precordial leads. - Impressions ITS Impressions Chest X-Ray 07/10/18 15:48 IMPRESSION: No acute cardiopulmonary disease. D/ / Smooth Medina MD / Smooth Medina MD Interpreting Provider: Smooth Medina MD - Diagnostic Studies Chest x-ray Additional comments: Impressions Chest X-Ray 07/10/18 15:48 IMPRESSION: No acute cardiopulmonary disease. D/ / Smooth Medina MD / Smotoh Medina MD Interpreting Provider: Smooth Medina MD - Assessment and plan (1) COPD exacerbation Current Visit: Yes Status: Acute Assessment and plan: Acute exacerbation of COPD. SOB that began yesterday accompanied by CP. There is concern for possible PE d/t hx of DVT and atrial fibrillation w/o anticoagulation except aspirin. CTA of the chest ordered stat to r/o PE. Awaiting results. Pt. has hx of COPD and is a current smoker, smoking 9 cigarettes daily. Uses O2 2L @ home. Will treat for bronchitis w/IVPB azithromycin 50 mg daily. Xopenex IH Q4HR d/t pts. Afib. Flutter valve added for cough. RT on board. Supplemental O2 w/titration and SpO2 monitoring. Mucinex 1.200 mg BID for cough/congestion. Sputum culture. Respiratory infection panel ordered stat. Pt. received PO prednisone once in ED. Will continue w/IVP Solu- Medrol 60 mg Q8HR starting at 23:00 tonight. CXR shows no acute cardiopulmonary disease. Lungs are clear. No infiltrate, pleural effusion, or focal process seen. No acute osseous findings. Denies BiPAP or CPAP use. Pt. is high risk for further morbidity and complications d/t current SOB accompanied by CP, current tobacco use, familial hx of CAD, no recent cardiac w/u, CP at rest; and risk factors. Observation. (2) Chest pain Current Visit: Yes Status: Acute Assessment and plan: Acute CP that pt. reports began yesterday accompanied by SOB. Reports chest pain under her left breast that presented as wringing pressure that came on at rest. Patient reports pain worse with inspiration. No cardiac w/u hx. Patient does have history of COPD and is currently producing thick sputum from cough. CP relieved by rest. Current smoker who smokes 9 cigarettes daily. Initial troponin <0.03. Will trend. Echocardiogram. ASA. Pt. allergic to statins. SL nitro PRN. Continuous cardiac telemetry. EKG shows sinus rhythm with probable left atrial enlargement, incomplete RBBB, and low voltage in precordial leads. Nuclear pharm stress test ordered for a.m. if troponins remain WNL. Consider adding Cardiology consult if troponins, Echocardiogram, and/or stress test results abnormal. Qualifiers: Chest pain type: other chest pain Qualified Code(s): R07.89 - Other chest pain; R07.8 - Other chest pain (3) Bronchitis Current Visit: Yes Status: Acute Assessment and plan: Acute bronchitis accompanying COPD exacerbation. Respiratory infection panel ordered stat. Legionella and strep pneumoniae antigens ordered stat. Sputum culture. Pt. received IVPB azithromycin in ED. Will continue 500 mg IVPB daily for infection coverage. Xopenex breathing txs and flutter valve d/t cough. Mucinex 1,200 mg BID for cough. RT on board. (4) A-fib Current Visit: Yes Status: Chronic Assessment and plan: Hx of paroxysmal Afib. Pt. reports only taking aspirin daily d/t having problems regulating Coumadin. Hx of DVT in LLE several years ago. Heparin SQ for DVT prophylaxis. Will continue daily ASA. Qualifiers: Atrial fibrillation type: paroxysmal Qualified Code(s): I48.0 - Paroxysmal atrial fibrillation (5) HTN (hypertension) Current Visit: Yes Status: Chronic Assessment and plan: Hx of chronic HTN. Monitor pt. and VS. Continue pts. Cardizem and clonidine. Qualifiers: Hypertension type: essential hypertension Qualified Code(s): I10 - Essential (primary) hypertension (6) Anxiety and depression Current Visit: Yes Status: Chronic Assessment and plan: Hx of chronic anxiety w/bipolar depression. Continue patient's Xanax, Vistaril, doxepin, and Seroquel (7) DVT prophylaxis Current Visit: Yes Status: Acute Assessment and plan: Heparin SQ 5,000 units Q8HR for DVT prophylaxis. Monitor pt. for signs of bleeding. - Time Spent With Patient Total time spent is greater than 50% in coordination of care (as documented) at patient's floor/unit and/or counseling patient: Greater than 35 minutes
[2018-07-10] MEDS ORDERED: *HR* Dextrose 50 % in Water (Syg) 50 ML SYRINGE IVP PRN (22:06)
[2018-07-10] MEDS ORDERED: Dextrose 4 GM Chewable Tablets PO PRN ×2 (22:06)
[2018-07-10] MEDS ORDERED: D5% in Water 1,000 ML IVC PRN (22:06)
[2018-07-10] MEDS ORDERED: Dextrose Gel 15 GM/37.5 ML TUBE PO PRN ×2 (22:06)
[2018-07-10] MEDS ORDERED: Insulin LISPRO 300 UNITS/3 ML VIAL SQ SCH (22:15)
[2018-07-10] MEDS ORDERED: Nitroglycerin 0.4 MG TAB.SUBL SL PRN (22:20)
[2018-07-10] MEDS: *HR* Heparin 5,000 UNIT/ML VIAL SQ SCH (22:26)
[2018-07-10] MEDS ORDERED: methylPREDNISolone 125 MG/2 ML VIAL IVP SCH (23:00)
[2018-07-10 23:41] LABS: Adenovirus Not Detected (Not Detect); Bordetella Pertussis Not Detected (Not Detect); Chlamydophila pneumoniae Not Detected (Not Detect); Coronavirus 229E Not Detected (Not Detect); Coronavirus HKU1 Not Detected (Not Detect); Coronavirus NL63 Not Detected (Not Detect); Coronavirus OC43 Not Detected (Not Detect); Human Metapneumovirus Not Detected (Not Detect); Human Rhinovirus/Enterovirus Not Detected (Not Detect); Influenza A Subtype 2009 H1 Not Detected (Not Detect); Influenza A Untypeable Not Detected (Not Detect); Influenza B Not Detected (Not Detect); Mycoplasma pneumoniae Not Detected (Not Detect); Parainfluenza Virus 1 Not Detected (Not Detect); Parainfluenza Virus 2 Not Detected (Not Detect); Parainfluenza Virus 3 Not Detected (Not Detect); Parainfluenza Virus 4 Not Detected (Not Detect); Respiratory Syncytial Virus Not Detected (Not Detect)
[2018-07-11] MEDS: Gabapentin 300 MG CAPSULE PO SCH ×2 (00:27→10:25)
[2018-07-11] MEDS: Levalbuterol Neb 1.25 MG/3 ML IH SCH ×4 (00:40→11:47)
[2018-07-11 01:32] LABS: Hematocrit 44.2 % (35.3-44.9); Hemoglobin 14.1 g/dL (11.5-15.4); Mean Corpuscular HGB Conc 31.9 g/dL (31.6-35.5); Mean Corpuscular Hemoglobin 30.2 pg (28.0-33.3); Mean Corpuscular Volume 94.6 fL (83.0-100.0); Mean Platelet Volume 9.7 fL (9.4-12.4); Platelet Count 202 K/mcL (140-400); Red Blood Count 4.67 M/mcL (3.82-4.97); Red Cell Distribution Width 13.1 % (11.5-14.5)
[2018-07-11 02:00] LABS: BUN/Creatinine Ratio 19 (6-26); Blood Urea Nitrogen 14 mg/dL (6-20); Calcium 8.3 mg/dL (8.6-10.3); Carbon Dioxide 20 mEq/L (23-29); Chloride 107 mEq/L (98-107); Cholesterol 213 mg/dL (< 200); Glucose 212 mg/dL (70-105); HDL Cholesterol 43 mg/dL (40-59); LDL Cholesterol,Calculated 146 mg/dL (0-99); Magnesium 1.8 mg/dL (1.6-2.6); Osmolality,Calculated 289 (280-300); Potassium 3.9 mEq/L (3.5-5.1); Sodium 136 mEq/L (136-145); Triglycerides 121 mg/dL (< 150); eGFR For Non-African Americans > 60 (> 60)
[2018-07-11] MEDS ORDERED: Regadenoson 0.4 MG/5 ML SYRINGE IVP ONE (06:00)
[2018-07-11] MEDS: *HR* Heparin 5,000 UNIT/ML VIAL SQ SCH (06:02)
[2018-07-11] MEDS ORDERED: Aspirin Enteric Coated 81 MG Tablet PO SCH (09:00)
[2018-07-11] MEDS: Insulin LISPRO 300 UNITS/3 ML VIAL SQ SCH ×2 (09:30→12:29)
[2018-07-11] MEDS ORDERED: Budesonide/Formoterol 160/4.5 1 PUFF INH IH SCH (10:00)
[2018-07-11 11:44] VITALS: BP 108/73
--- NOTE | 2018-07-11 11:52 | Discharge Summary ---
<Julianna Maldonado - Last Filed: 07/11/18 12:58> - NOTES TO OUTPATIENT PROVIDER Notes to Outpatient Provider: Placed patient on symbicort and Prednisone for 5 days. Patient's LDL was 146, total Cholesterol 213, and HDL 43 and she is not on a statin, will need ASCVD risk score calculated and determined need for lipid therapy. Orders not resulted at time of discharge: Pending orders 07/10/18 20:46 Sputum Culture [Culture,Sputum with Gram Stain] [RM] Stat 07/11/18 06:10 NM abigail perf SPECT multi [NM] Routine 07/12/18 04:00 Basic Metabolic Panel AM 0400 Complete Blood Count w/o Diff [HEME] AM 04007/13/18 04:00 Basic Metabolic Panel AM 0400 Complete Blood Count w/o Diff [HEME] AM 0400 07/14/18 04:00 Basic Metabolic Panel AM 0400 Complete Blood Count w/o Diff [HEME] AM 0400 Date of Encounter: 07/11/18 Time of Encounter: 09:00 - Discharge Diagnosis (1) A-fib Priority: Secondary Status: Chronic Qualifiers: Atrial fibrillation type: paroxysmal Qualified Code(s): I48.0 - Paroxysmal atrial fibrillation (2) DVT prophylaxis Priority: Secondary Status: Acute (3) Chest pain Priority: Secondary Status: Acute Qualifiers: Chest pain type: other chest pain Qualified Code(s): R07.89 - Other chest pain; R07.8 - Other chest pain (4) HTN (hypertension) Priority: Secondary Status: Chronic Qualifiers: Hypertension type: essential hypertension Qualified Code(s): I10 - Essential (primary) hypertension (5) Anxiety and depression Priority: Secondary Status: Chronic (6) COPD exacerbation Priority: Primary Status: Acute (7) Bronchitis Priority: Secondary Status: Acute Hospital course: Ms. Abreu is a 52 year old female with a past medical history of A. fib on aspirin, COPD dependent on 2 L O2 at night, hypertension, anxiety, and bipolar who presented to the ED with shortness of breath with coughing for the last couple days and chest pain. CXR showed no acute process. CTA performed to r/o PE showed no PE or pneumonia. Due to having chest pain stress tests was performed which is negative. Echo showed preserved EF of 65% and no abnormalities. Troponins are negative 3. Patient's LDL was 146 and she is not on a statin evaluated outpatient. Viral panel was negative. Patient was admitted for COPD exacerbation secondary to viral bronchitis. Patient was started on Solu-Medrol, Xopenex, and Azithromycin. Patient was weaned from 2L NC to room air before discharged. 6 minute walking test performed and she did not qualify for portable oxygen. Patient has not been on Symbicort therefore will add for COPD. She was discharged home with Azithromycin, Mucinex, Ventolin, Symbicort, and Prednisone for 5 days. She was instructed to follow-up with her primary care physician in 3-4 days. - Time Spent with Patient Total time spent providing and/or coordinating discharge services: - Discharge Medications Prescriptions: Albuterol Sulfate [Ventolin Hfa] 18 gm IH Q4H PRN #1 hfa.aer.ad PRN Reason: Wheezing Azithromycin [Azithromycin 6-Tab Pack] 250 mg PO DAILY 5 Days #5 tab RX: Budesonide/Formoterol 160/4.5 [Symbicort 160/4.5] 2 puff IH BIDR #1 inh RX: GuaiFENesin ER [Mucinex] 600 mg PO BID #10 tbbp.12hr RX: predniSONE [PredniSONE] 20 mg PO DAILY #5 tablet Home Medications: RX: ALPRAZolam [Xanax 1 MG Tablet] 0.5 - 1 mg PO BID PRN 05/15/15 [History] RX: Diltiazem CD (24hr) [Cardizem CD] 120 mg PO DAILY 05/15/15 [History] RX: Ipratropium/Albuterol Neb [Duoneb] 3 ml IH Q4HR PRN #50 vial.neb 04/15/16 [Rx] RX: Pantoprazole Sodium [Protonix] 40 mg PO DAILY 05/13/16 [History] RX: Doxepin [Sinequan] 25 mg PO DAILY 09/01/17 [History] RX: HydrOXYzine Pamoate [Vistaril] 50 mg PO TID PRN 09/01/17 [History] RX: Quetiapine Fumarate [Seroquel] 100 mg PO HS 09/01/17 [History] RX: cloNIDine HCl [CloNIDine HCl] 0.1 mg PO DAILY 09/01/17 [History] Albuterol Sulfate [Ventolin Hfa] 18 gm IH Q4H PRN #1 hfa.aer.ad 07/11/18 [Rx] Azithromycin [Azithromycin 6-Tab Pack] 250 mg PO DAILY 5 Days #5 tab 07/11/18 [Rx] RX: Budesonide/Formoterol 160/4.5 [Symbicort 160/4.5] 2 puff IH BIDR #1 inh 07/11/18 [Rx] RX: CarBAMazepine [Equetro] 200 mg PO BID 07/11/18 [History] RX: GuaiFENesin ER [Mucinex] 600 mg PO BID #10 tbbp.12hr 07/11/18 [Rx] RX: predniSONE [PredniSONE] 20 mg PO DAILY #5 tablet 07/11/18 [Rx] Allergies/Adverse Reactions: Allergy/AdvReac Type Severity Reaction Status Date / Time celecoxib Allergy See Verified 06/02/18 19:49 Comments oxcarbazepine Allergy See Verified 06/02/18 19:49 Comments rofecoxib Allergy See Verified 06/02/18 19:49 Comments Qyaawaz-Vgb-Rgr Reductase Allergy Rash Verified 06/02/18 19:49 Inhibitor [Statins] Date of admission: 07/10/18 19:40 Primary care physician: Juve Becerril MD Consults: 07/10/18 20:43 Consult to Networking Specialist [CONS] Routine Reason for SW Consult: Please assess patient for possible home needs for post-discharge planning. 07/10/18 20:48 Consult to Respiratory Therapy [CONS] Routine Reason for Consult: Add flutter valve to pts. breathing txs Call Completed: Yes 07/11/18 10:22 Consult to Nurse Navigator [CONS] Routine Comment: copd - Constitutional Vitals: Temp Pulse Resp BP Pulse Ox 97.9 F 80 18 108/73 91 07/11/18 11:42 07/11/18 11:42 07/11/18 11:42 07/11/18 11:42 07/11/18 11:42 General appearance: Present: cooperative, mild distress (SOB w/CP on inspiration), A&O X 3, pleasant, answers questions appropriately Exam: Constitutional: Alert, in no acute distress Head: Normocephalic, atraumatic Heart: Normal, regular rate and rhythm, no murmurs Lungs: wheezing, no increased work of breathing on room air, Abdomen: Soft, nondistended, nontender, bowel sounds present and normal, no guarding or rigidity. Extremities: No edema, No clubbing, radial pulse +2/4, capillary refill <2sec. Skin: Skin warm and dry, no lesions, no rashes, no jaundice Neurologic: Cranial nerves II through XII grossly intact, Psych: Cooperative with exam, good eye contact, cognitive function intact, speech clear, thought process logical, and goal directed - Patient Status Disposition: Home, Self-Care Condition: Fair Functional capacity at discharge: independent ambulation Overall status at discharge: patient is progressing back to baseline - Discharge Instructions Instructions: Atrial Fibrillation (DC), Chest Pain (DC) Follow Up With: Juve Becerril MD [Primary Care Provider] - 07/19/18 9:45 am () Additional Instructions: Please follow-up with her primary care physician in 3-4 days. Please take medications as prescribed. - Diet and Activity Activity: wear oxygen at night Diet: advance to your usual diet <Yanira Proctor - Last Filed: 07/11/18 14:07> Orders not resulted at time of discharge: Pending orders 07/10/18 20:46 Sputum Culture [Culture,Sputum with Gram Stain] [RM] Stat 07/11/18 06:10 NM abigail perf SPECT multi [NM] Routine Date of Encounter: 07/11/18 - Discharge Diagnosis (1) A-fib Status: Chronic Qualifiers: Atrial fibrillation type: paroxysmal Qualified Code(s): I48.0 - Paroxysmal atrial fibrillation (2) DVT prophylaxis Status: Acute (3) Chest pain Status: Acute Qualifiers: Chest pain type: other chest pain Qualified Code(s): R07.89 - Other chest pain; R07.8 - Other chest pain (4) HTN (hypertension) Status: Chronic Qualifiers: Hypertension type: essential hypertension Qualified Code(s): I10 - Essential (primary) hypertension (5) Anxiety and depression Status: Chronic (6) COPD exacerbation Status: Acute (7) Bronchitis Status: Acute Hospital course: Ms. Abreu is a 52 year old female - Time Spent with Patient Total time spent providing and/or coordinating discharge services: Date of admission: 07/10/18 19:40 Primary care physician: Juve Becerril MD Consults: 07/10/18 20:43 Consult to Networking Specialist [CONS] Routine Reason for SW Consult: Please assess patient for possible home needs for post-discharge planning. 07/10/18 20:48 Consult to Respiratory Therapy [CONS] Routine Reason for Consult: Add flutter valve to pts. breathing txs Call Completed: Yes 07/11/18 10:22 Consult to Nurse Navigator [CONS] Routine Comment: copd - Constitutional Vitals: Temp Pulse Resp BP Pulse Ox 97.9 F 80 18 108/73 91 07/11/18 11:42 07/11/18 11:42 07/11/18 11:42 07/11/18 11:42 07/11/18 11:42 - Attending Attestation I examined this patient and my medical decision-making was reviewed with the Resident Physician Dr. Maldonado. I agree with the documented findings, disposition and treatment plan as described except to the extent set forth below. Ms. Abreu is a 52 year old female w/PMH of atrial fibrillation on aspirin only, COPD, chronic smoker, hypertension, anxiety, and bipolar depression presents from the ED w/CC of shortness of breath that began yesterday as well as chest pain under her left breast that presented as wringing pressure that came on at rest. Patient was admitted in the hospital and placed on gambling monitor. Her serial troponin came back is negative. She did go for nuclear stress test which came back is negative for any ischemia/infarction. Chest pain seems to be atypical due to cough as well as acute bronchitis. She does have mild COPD exacerbation. With steroids and bronchodilator therapy patient stated she is feeling a lot better today. Patient is still active smoker. I did intellectual property counsel the patient to quit smoking. Will discharge her home in a stable condition today. Chest: Diminished BS b/l, no crackles, no rales, mild wheezing Heart: S1S2+ RRR No murmurs
[2018-07-11] MEDS ORDERED: predniSONE 20 MG TABLET PO SCH (17:00)
[2018-07-11] MEDS ORDERED: Azithromycin 500 MG in D5% in Water 250 ML IVPB SCH (23:00)
== END 2018-07-11 13:23 | disposition home or self-care (01) ==
LOC: EMEROOARM 15:31 → 3BNU 15:31 → SUATTDRO 19:40 → 3BNU 20:24
PROVIDERS: ADMIT Hospitalist; ATTEND Family Medicine

== ENCOUNTER 2019-01-16 06:28 | Observation (INO) ==
[~2019-01-16 06:28] MED LIST: Bacitracin 50,000 UNIT, Polymyxin B Sulfate 500,000 UNIT, Sodium Chloride IRRigation 1,... IR ONE
[2019-01-16] MEDS ORDERED: CeFAZolin Syr 2,000MG/20 ML 2,000 MG/20 ML SYRINGE IVPB ONE (06:48)
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
[2019-01-16] MEDS ORDERED: Levalbuterol Neb 1.25 MG/3 ML IH ONE (06:49)
[2019-01-16] MEDS ORDERED: Ringers Solution, Lactated 1,000 ML IVC SCH ×3 (07:00→11:33)
[2019-01-16] MEDS ORDERED: diazePAM 5 MG TABLET PO ONE (07:06)
[2019-01-16] MEDS ORDERED: *HR* Meperidine 25 MG/ML SYRINGE IVP PRN (07:06)
[2019-01-16] MEDS ORDERED: *HR* Promethazine 25 MG/ML VIAL IVP PRN (07:06)
[2019-01-16] MEDS ORDERED: Acetaminophen IV 1,000 MG/100 ML INFUS..BTL IVPB ONE (07:06)
[2019-01-16] MEDS ORDERED: *HR* OxyCODONE Immed Rel 5 MG TABLET PO PRN (07:06)
[2019-01-16] MEDS ORDERED: Ondansetron ODT 4 MG TAB.RAPDIS SL ONE (07:06)
[2019-01-16] MEDS ORDERED: *HR* Rocuronium Bromide 50 MG/5 ML VIAL ONE (07:09)
[2019-01-16] MEDS ORDERED: Dexamethasone 4 MG/ML VIAL ONE (07:09)
[2019-01-16] MEDS ORDERED: Ondansetron 4 MG/2 ML VIAL ONE (07:09)
[2019-01-16] MEDS ORDERED: *HR* Succinylcholine 200 MG/10 ML VIAL IVP ONE (07:09)
[2019-01-16] MEDS ORDERED: Lidocaine -MPF 2% 2 ML VIAL ONE (07:09)
[2019-01-16] MEDS ORDERED: Lidocaine -MPF 4% 5 ML AMPUL ONE (07:09)
[2019-01-16] MEDS ORDERED: *HR* Propofol 200 MG/20 ML VIAL IVP ONE (07:10)
[2019-01-16] MEDS ORDERED: *HR* Midazolam HCl 2 MG/2 ML VIAL ONE (07:10)
[2019-01-16] MEDS ORDERED: *HR* FentaNYL (PF) 100 MCG/2 ML VIAL ONE ×2 (07:10→08:44)
[2019-01-16] MEDS ORDERED: Famotidine 20 MG/2 ML VIAL IVP ONE (07:11)
[2019-01-16] MEDS ORDERED: Gabapentin 300 MG CAPSULE PO ONE (07:13)
[2019-01-16] MEDS ORDERED: Dexmedetomidine HCl 400 MCG/100 ML MLS IVC ONE (07:20)
[2019-01-16] MEDS ORDERED: Propofol 500 MG/50 ML INFUS..BTL ONE ×3 (07:22→09:00)
[2019-01-16] MEDS ORDERED: *HR* Magnesium Sulfate 1 GM/2 ML VIAL ONE (07:24)
[2019-01-16] MEDS ORDERED: Lacri-Lube 3.5 GM TUBE ONE (07:30)
--- NOTE | 2019-01-16 07:36 | History & Physical Report ---
Date of Encounter: 01/16/19 Time of Encounter: 07:36 24 Hour HP Update - Instructions Instructions: If the History and Physical is less than 30 days old and was completed prior to A.M. admission and or procedure and has NOT been updated on calendar day of procedure please complete this update prior to performing procedure. - Update Patient reports changes in Medical Condition: No Changes in examination, assessment, or condition: No Changes in Medication: No Preop tests/diagnostics Reviewed: Yes Pre-Op MRSA Screen: Negative Surgery Remains Indicated: Yes Consent for Planned Operative Procedure(s) Verified: Yes - Pre-Operative Checklist Preoperative Checklist Indicated: No Prophylactic Antibiotic Ordered: Yes Home Medications Include Beta Casandra: No Beta Casandra Taken Today (Day of Surgery): No Beta Casandra Taken Yesterday (Day Prior to Surgery): No Is VTE Prophylaxis Indicated?: Yes
[2019-01-16] MEDS ORDERED: *HR* PHENYLEPHRINE 1,000 MCG/10 ML SYRINGE IVP ONE (08:00)
--- NOTE | 2019-01-16 10:04 | Orthopedic Operative Note ---
Date of procedure: 01/16/19 Pre-op diagnosis: Cervical stenosis, cervical radiculopathy Post-op diagnosis: same Operation/Findings: Anterior cervical decompression fusion C5-C7:The patient was brought to the operating room and placed supine on the operating room table. Successful general endotracheal anesthesia intubation was performed. Neurophysiologic monitoring personnel placed leads on the upper and lower extremities as well as the cranium for EMG monitoring purposes. Appropriate baseline potentials were noted by the neurophysiologic monitoring staff. Alaniz catheter was placed prior to positioning. Compression boots and stockings were placed for deep vein thrombosis prophylaxis. Padding was also placed all bony prominences including the ulnar nerve near the medial epicondyles of the elbows were appropriately padded. Mild traction was placed on the bilateral shoulders and taped into place. Preoperative antibiotics were administered. The area from the mandible bilaterally to the upper thoraces was prepped and draped in the usual sterile fashion. A transverse incision was made at the level of the cricoid cartilage which is approximately 3 cm in length and extended from the midline of the cervical spine laterally towards the sternocleidomastoid muscle on the left. We then performed standard medial approach to the carotid sheath. Sponges were used to tease the fascial medial to the sternocleidomastoid muscle while carefully controlling and palpating the carotid artery. Using careful dissection we were able to get to the level of the anterior vertebral bodies and longus coli muscles. The spinal needle was placed at the appropriate C6-7 level, and intraoperative radiograph was obtained which was a cervical spine lateral radiograph. The needle and radiograph confirmed we were at the correct C6-7 operative level. We further exposed this level by using Bovie cautery under the medial edge of the longus colli muscles to allow them to be retracted approximately 2 mm laterally on each side. An 11 blade was used to perform an terior discectomy at the appropriate C6-7 level after an initial annulotomy of the anterior longitudinal ligament and annulus was performed. Further disc material was removed with pituitary Rongeurs. Subsequently, Synthes pins were placed at the C6 and C7 vertebral bodies respectively to provide distraction. We then used a Trimline cervical retractor which was placed in both medial and lateral as well as inferior superior direction to allow full visualization of the appropriate C6-7 disc and C6 and C7 vertebral bodies. The Leica microscope was brought to the field and the remainder of the procedure was performed under the guidance of this microscope. Using pituitary rongeurs and small curettes, various micro-instruments, a full discectomy was performed at the appropriate C6-C7 level. The posterior longitudinal ligament was encountered and appeared partially calcified. A portion of this ligament was removed. After complete and thorough discectomy and removal of spondylitic material was performed the endplates of the C6 and C7 vertebral bodies were prepared with a bur until allow bleeding of cancellous bone. A 7mm trial graft was evaluated and appeared to fit quite well within the excised C6-7 disc space. A cortico-cancellous allograft of 7 mm was utilized, carefully tapped into place within the excised disc space with the aid of a bone tamp. It was seated approximately 2 mm from the anterior edge of the cortex of the adjacent vertebral bodies. We then turned our attention to the C5-6 level where a similar series of procedures was performed including discectomy, removal of spondylitic material, end plate preparation, and trial grafting. An 8mm trial fit well within the C5-6 disc space. A 8 mm allograft was then placed at C5-6. A cervical plate was then placed on the anterior aspect of the C5, C6, and C7 vertebral bodies. The plate was placed in the midline position after drilling six 13 mm self tapping screws and inserting them. They were locked in place using standard Venture plate maneuvers. At this point a lateral radiograph of the cervical spine was obtained and showed satisfactory position of the graft and plate. The wound was copiously irrigated and bleeders encountered were cauterized using Bovie cautery. Platysma was closed with interrupted 2-0 Vicryl sutures. Running 3-0 Monocryl suture was used for skin closure. Sterile dressing was placed over the neck wound. A cervical collar was placed. The patient was transferred to a hospital bed and extubated. The patient was noted to be fully motor and sensory intact in the recovery room at the end of the procedure. The medications. All sponge instrument and needle counts were correct at the end of the procedure. Anesthesia: GETA Surgeon: Dennis Tarango Jr Was there an resident programs assistant present: No Estimated blood loss (cc): 12 Specimen: None Condition: stable Disposition: PACU
[2019-01-16] MEDS: *HR* HYDROmorphone (PF) 1 MG/ML SYRINGE IVP PRN ×3 (10:32→11:13)
--- NOTE | 2019-01-16 11:20 | Anesthesia Evaluation Post Op ---
Date of Encounter: 01/16/19 Time of Encounter: 11:19 - Vital Signs Vital Signs: Vital Signs/O2 Sat, Most Current Temp Pulse Resp BP Pulse Ox 97.8 F 60 12 134/85 100 01/16/19 10:46 01/16/19 11:06 01/16/19 11:06 01/16/19 11:06 01/16/19 11:06 - Lungs Lungs: Clear Ascult./Percussion - Airway Airway: Non-obstructed - Cardiovascular Regular Rate, Baseline Rhythm - Mental Status Mental Status: Alert & Oriented, Answers Appropriately - Pain Pain Scale: 3 - Nausea Vomiting Nausea Vomiting: Not Present - Hydration Hydration: Ice chips - Discharge PostOp Status: Transfer Patient to floor
[2019-01-16] MEDS ORDERED: *HR* HYDROcodone/Acet 5/325 mg TABLET PO PRN (11:33)
[2019-01-16] MEDS ORDERED: Acetaminophen 325 MG TABLET PO PRN (11:33)
[2019-01-16] MEDS ORDERED: hydrOXYzine pamoate 25 MG CAPSULE PO PRN (11:33)
[2019-01-16] MEDS ORDERED: Naloxone 0.4 MG/ML INJ IVP PRN (11:33)
[2019-01-16] MEDS: ALPRAZolam 1 MG TABLET PO PRN ×2 (12:41→21:19)
[2019-01-16] MEDS: *HR* OxyCODONE Immed Rel 5 MG TABLET PO PRN ×2 (16:36→21:01)
[2019-01-16] MEDS ORDERED: D5% in Water 1,000 ML IVC PRN (16:55)
[2019-01-16] MEDS ORDERED: Dextrose Gel 15 GM/37.5 ML TUBE PO PRN ×2 (16:55)
[2019-01-16] MEDS ORDERED: *HR* Dextrose 50 % in Water (Syg) 50 ML SYRINGE IVP PRN (16:55)
[2019-01-16] MEDS ORDERED: Ipratropium/Albuterol Neb 3 ML IH PRN (17:11)
[2019-01-16] MEDS: Insulin LISPRO 300 UNITS/3 ML VIAL SQ SCH ×2 (17:36→21:36)
[2019-01-16] MEDS: cloNIDine HCl 0.1 MG TABLET PO SCH (17:37)
[2019-01-16] MEDS: Ondansetron 4 MG/2 ML VIAL IVP PRN (21:00)
[2019-01-16] MEDS: carBAMazepine 200 MG TABLET PO SCH (22:50)
[2019-01-17] MEDS: *HR* OxyCODONE Immed Rel 5 MG TABLET PO PRN ×4 (04:41→21:08)
[2019-01-17] MEDS: Ondansetron 4 MG/2 ML VIAL IVP PRN (06:18)
[2019-01-17] MEDS ORDERED: *HR* HYDROcodone/Acet 5/325 mg TABLET PO PRN (07:42)
[2019-01-17] MEDS: carBAMazepine 200 MG TABLET PO SCH ×2 (09:09→21:08)
[2019-01-17] MEDS: Diltiazem CD (24hr) 120 MG CAPSULE PO SCH (09:09)
[2019-01-17] MEDS: ALPRAZolam 1 MG TABLET PO PRN (09:09)
[2019-01-17] MEDS: Insulin LISPRO 300 UNITS/3 ML VIAL SQ SCH ×4 (09:19→21:32)
[2019-01-17] MEDS: Acetaminophen IV 1,000 MG/100 ML INFUS..BTL IVPB PRN ×2 (09:28→17:47)
--- NOTE | 2019-01-17 11:38 | Discharge Summary ---
Date of Encounter: 01/18/19 Time of Encounter: 09:00 - Discharge Diagnosis (1) Cervical spinal stenosis Priority: Primary Status: Chronic (2) Cervical radiculopathy Priority: Primary Status: Chronic (3) Status post cervical spinal fusion Priority: Primary Status: Acute (4) COPD (chronic obstructive pulmonary disease) Priority: Secondary Status: Chronic Qualifiers: COPD type: unspecified COPD Qualified Code(s): J44.9 - Chronic obstructive pulmonary disease, unspecified - Hospital Course Hospital course: Ms. Abreu is a 53 year old female POD#2 s/p Anterior cervical decompression fusion C5-C7 [ Cervical stenosis, cervical radiculopathy] 01/16/19 Patient seen at bedside. Patient states preoperative symptoms are stable since surgery. A&Ox3 Dressing and incision c/d/i No calf tenderness, erythema, or warmth. Neurovascularly intact all extremities Labwork, vitals, and medications reviewed. Pain control: Inadequate POD#1, progressed to adequate through night of POD#1 into POD#2 Participating in therapy. All questions and concerns addressed. Educated on use of incentive spirometer, ambulation, and hydration. Patient educated on post-operative restrictions and care. Addressed: see above. The patient's postoperative course was uneventful. Progressed from intravenous analgesic needs to oral analgesic needs only. Remained neurovascularly intact and mobilized satisfactorily. All radiographic studies were satisfactory. Patient course and disposition discussed with Dr. Tarango. Patient is discharged to home with plan for rehabilitation and outpatient orthopedic follow up has been arranged. - Time Spent with Patient Total time spent providing and/or coordinating discharge services: - Discharge Medications Prescriptions: New Docusate [Colace] 100 mg PO BID 10 Days #20 capsule OxyCODONE Immed Rel [Roxicodone 5 MG] 5 mg PO Q6H PRN 5 Days #20 tablet PRN Reason: Severe Pain Acetaminophen [Tylenol] 650 mg PO Q6HR PRN 7 Days #56 tablet PRN Reason: Pain Ipratropium/Albuterol Sulfate [Combivent Respimat 20-100 Mcg] 4 gm IH Q6H PRN 30 Days #120 mist.inhal PRN Reason: Cough Continued ALPRAZolam [Xanax 1 MG Tablet] 1 mg PO BID PRN PRN Reason: Anxiety Diltiazem CD (24hr) [Cardizem CD] 120 mg PO QAM Pantoprazole Sodium [Protonix] 40 mg PO QAM cloNIDine HCl [CloNIDine HCl] 0.1 mg PO QPM MDD FOR SBP GREATER THAN 150 Doxepin [Sinequan] 25 mg PO HS HydrOXYzine Pamoate [Vistaril] 50 mg PO TID PRN PRN Reason: Anxiety Quetiapine Fumarate [Seroquel] 100 mg PO HS carBAMazepine [Tegretol] 200 mg PO BID Gabapentin [Neurontin] 600 mg PO TID Discontinued Oxycodone HCl/Acetaminophen [Percocet 5-325 mg Tablet] 1 each PO Q6H PRN PRN Reason: Pain Home Medications: ALPRAZolam [Xanax 1 MG Tablet] 1 mg PO BID PRN 05/15/15 [History] Diltiazem CD (24hr) [Cardizem CD] 120 mg PO QAM 05/15/15 [History] Pantoprazole Sodium [Protonix] 40 mg PO QAM 05/13/16 [History] Doxepin [Sinequan] 25 mg PO HS 09/01/17 [History] HydrOXYzine Pamoate [Vistaril] 50 mg PO TID PRN 09/01/17 [History] Quetiapine Fumarate [Seroquel] 100 mg PO HS 09/01/17 [History] cloNIDine HCl [CloNIDine HCl] 0.1 mg PO QPM MDD FOR SBP GREATER THAN 150 09/01/17 [History] Gabapentin [Neurontin] 600 mg PO TID 01/16/19 [History] carBAMazepine [Tegretol] 200 mg PO BID 01/16/19 [History] Acetaminophen [Tylenol] 650 mg PO Q6HR PRN 7 Days #56 tablet 01/17/19 [Rx] Docusate [Colace] 100 mg PO BID 10 Days #20 capsule 01/17/19 [Rx] OxyCODONE Immed Rel [Roxicodone 5 MG] 5 mg PO Q6H PRN 5 Days #20 tablet 01/17/19 [Rx] Ipratropium/Albuterol Sulfate [Combivent Respimat 20-100 Mcg] 4 gm IH Q6H PRN 30 Days #120 mist.inhal 01/18/19 [Rx] Allergies/Adverse Reactions: Allergy/AdvReac Type Severity Reaction Status Date / Time celecoxib Allergy Anaphylaxis Verified 01/16/19 08:04 codeine Allergy Itching, Verified 01/16/19 08:04 Swelling oxcarbazepine Allergy unknown Verified 01/16/19 08:04 rofecoxib Allergy Anaphylaxis Verified 01/16/19 08:04 Xzodpnf-Lks-Gvf Reductase Allergy Muscle Pain Verified 01/16/19 08:04 Inhibitor [Statins] albuterol AdvReac See Verified 01/16/19 08:04 Comments doxycycline AdvReac Vomiting Verified 01/16/19 08:04 cottage cheese Allergy Anaphylaxis Uncoded 01/16/19 08:04 Date of admission: 01/16/19 Primary care physician: Juve Becerril MD Consults: 01/16/19 11:33 Consult to Occupational Therapy [CONS] Routine Comment: Evaluate, develop and implement POC Reason for Consult: Postoperative rehabilitation Does patient have active BEDREST order?: No Is patient medically & hemodynamically stable?: Yes Patient assessed for mobility or mobilized this visit?: No Consult to Physical Therapy [CONS] Routine Comment: Evaluate, develop and implement POC Reason for Consult: Postoperative rehabilitation Does patient have active BEDREST order?: No Is patient medically & hemodynamically stable?: Yes Patient assessed for mobility or mobilized this visit?: No Consult to Spine Navigator [CONS] [CONS] Routine Discharging clinician: Dennis Tarango Jr Anticipated date of discharge: 01/18/19 - VTE Documentation of Mechanical Device: Graduated compression elastic hosiery Labs on day of discharge: Labs from last 24 hours 01/17/19 01/16/19 01/16/19 09:16 21:14 17:26 POC Glucose 93 149 H 156 H - Impressions ITS Impressions Cervical Spine X-Ray 01/16/19 00:00 IMPRESSION: Intraoperative film demonstrates radiopaque marker at the C5-6 level. D/ / Shade Teixeira MD / Shade Teixeira MD Interpreting Provider: Shade Teixeira MD Cervical Spine X-Ray 01/16/19 00:00 IMPRESSION: Postsurgical changes with no complication. D/ / 01/16/2019 10:13:47 Beck Nye MD / earnold Interpreting Provider: Beck Nye MD - Patient Status Disposition: Home, Self-Care Condition: Good Functional capacity at discharge: uses cane/walker Overall status at discharge: patient is progressing back to baseline - Discharge Instructions Follow Up With: Juve Becerril MD [Primary Care Provider] - - Diet and Activity Activity: as per physical therapy Diet: advance to your usual diet
[2019-01-17] MEDS: cloNIDine HCl 0.1 MG TABLET PO SCH (16:49)
[2019-01-18] MEDS: *HR* OxyCODONE Immed Rel 5 MG TABLET PO PRN ×2 (01:44→09:21)
[2019-01-18] MEDS: ALPRAZolam 1 MG TABLET PO PRN (04:00)
[2019-01-18] MEDS: Ondansetron 4 MG/2 ML VIAL IVP PRN (04:00)
[2019-01-18 07:37] VITALS: BP 113/74
[2019-01-18] MEDS: Insulin LISPRO 300 UNITS/3 ML VIAL SQ SCH (07:53)
--- NOTE | 2019-01-18 08:54 | Orthopedics Progress Note ---
Date of Encounter: 01/17/19 Time of Encounter: 09:00 Subjective Principal diagnosis: s/p ACDF Interval history: POD#1 s/p Anterior cervical decompression fusion C5-C7 [Cervical stenosis, cervical radiculopathy] 01/16/19 Patient seen at bedside. A&Ox3 Dressing and incision c/d/i No calf tenderness, erythema, or warmth. Neurovascularly intact b/l LE. Labwork, vitals, and medications reviewed. Pain control: Inadequate - patient tearful stating pain is not controlled at all. Participating in therapy. All questions and concerns addressed. Educated on use of incentive spirometer, ambulation, and hydration. Patient educated on post-operative restrictions and care. Addressed: see above. Patient course and disposition discussed with Dr. Tarango D/C plan: Home tomorrow pending improvement in pain control Objective Vital signs: Vital Signs Temp Pulse Resp BP Pulse Ox 01/18/19 07:36 98.5 F 77 16 113/74 94 01/18/19 03:53 98.3 F 86 17 112/70 93 01/17/19 23:12 98.1 F 75 17 146/92 93 01/17/19 20:09 98.2 F 75 16 125/85 94 01/17/19 19:56 98.2 F 76 16 125/85 96 Intake and Output 01/17/19 01/18/19 01/18/19 23:59 07:59 15:59 Intake Total 100 / 660 Balance 100 / -340 Intake: Oral 100 / 460 Other: Meal Dinner Percent of Meal Consumed 85% # Voids 1 1 Blood Glucose* 136 119 - Labs Labs: Abnormal lab results POC Glucose 136 mg/dL (70-99) H 01/17/19 19:56 Consult Discharge Plan - Plan Additional Instructions: Discharge Instructions: Cervical Please call [facility] ([phone]), your Primary Care Physician, or report to the ER if you have any of the following symptoms: Fever greater that 101.5, increased pain/redness/drainage/odor for your incision site or any other concerning symptoms. ACTIVITY * May Shower * No Tub Baths * No Smoking * No Swimming * No Driving * Wear Collar when up walking * Incentive Spirometer 10 times an hour MEDICATIONS: Upon discharge resume your home medications. Take all the medications as prescribed. Take a stool softener if taking narcotic pain medications. Stool softeners are only effective if you drink enough fluids. Drink 6-8 glass of water or fluids a day, unless this is not allowed for another health problem. Despite using stool softeners, if you haven't had a bowel movement in 3 days, please switch to a gentle laxative. Gentle laxatives are sold over the counter. You should have a bowel movement within 24 hours, if not call the office. You will be discharged from the hospital with a prescription for pain medication. You are encouraged to decrease the use of narcotic pain medication as tolerated. Should you require a refill, please call the office. It is best to call 48-72 hours in advance of needing a prescription refill so you don't run out of medication. WOUND CARE: Leave steri-strips in place until they fall off on their own. Pat dry when you get out of the shower. FOLLOW-UP: Please follow up with your surgeon in the orthopedic clinic in 2 weeks from the day of surgery. References: [employer] (www.apta.org) Referrals: Huyen Avery PAC [Physician Baling Machine Tender] - 01/31/19 10:00 am Juve Becerril MD [Primary Care Provider] - Dennis Tarango Jr, MD [Partnered Physician] - 04/21/19 11:45 am Ro Sanchez MD [Partnered Physician] - 01/20/19 10:50 am
[2019-01-18] MEDS: carBAMazepine 200 MG TABLET PO SCH (09:19)
[2019-01-18] MEDS: Diltiazem CD (24hr) 120 MG CAPSULE PO SCH (09:19)
== END 2019-01-18 12:30 | disposition home or self-care (01) ==
LOC: SAMDAY 06:28 → 3NENU 06:28
PROVIDERS: ADMIT Orthopaedic Surgery Orthopaedic Surgery of the Spine; ATTEND Orthopaedic Surgery Orthopaedic Surgery of the Spine

== ENCOUNTER 2019-07-03 11:50 | Observation (INO) ==
[2019-07-03] MEDS ORDERED: Aspirin 81 MG TAB.CHEW PO STA (12:03)
[2019-07-03] MEDS: Nitroglycerin 0.4 MG TAB.SUBL SL PRN ×4 (12:34→20:32)
[2019-07-03 12:39] LABS: Basophils # 0.1 K/mcL (0.0-0.2); Basophils % 0.8 %; Eosinophils # 0.1 K/mcL (0.0-0.6); Eosinophils % 1.8 %; Hematocrit 41.2 % (35.3-44.9); Hemoglobin 13.3 g/dL (11.5-15.4); Immature Granulocytes % 0.5 % (0-4); Lymphocytes # 2.2 K/mcL (0.6-4.6); Lymphocytes % 35.3 %; Mean Corpuscular HGB Conc 32.3 g/dL (31.6-35.5); Mean Platelet Volume 9.3 fL (9.4-12.4); Monocytes # 0.3 K/mcL (0.0-1.3); Monocytes % 5.5 %; Neutrophils # 3.5 K/mcL (1.6-8.9); Platelet Count 209 K/mcL (140-400); Red Blood Count 4.29 M/mcL (3.82-4.97); Segmented Neutrophils % 56.1 %; White Blood Count 6.2 K/mcL (4.3-11.1)
[2019-07-03 12:41] LABS: INR 0.9; Prothrombin Time 10.6 Seconds (9.4-12.1)
[2019-07-03 12:43] LABS: Activated Partial Thrombo Time 36.2 Seconds (26.0-36.0)
[2019-07-03 13:05] LABS: BUN/Creatinine Ratio 17 (6-26); Blood Urea Nitrogen 12 mg/dL (6-20); Calcium 8.8 mg/dL (8.6-10.3); Carbon Dioxide 27 mEq/L (23-29); Chloride 107 mEq/L (98-107); Glucose 114 mg/dL (70-105); Osmolality,Calculated 299 (280-300); Potassium 3.7 mEq/L (3.5-5.1); Sodium 144 mEq/L (136-145); Troponin I < 0.03 ng/mL (< 0.04); eGFR For African Americans > 60 (> 60); eGFR For Non-African Americans > 60 (> 60)
[2019-07-03] MEDS ORDERED: Naloxone 0.4 MG/ML INJ IVP PRN (15:00)
[2019-07-03] MEDS ORDERED: Ondansetron 4 MG/2 ML VIAL IVP PRN (15:00)
[2019-07-03] MEDS ORDERED: D5% in Water 1,000 ML IVC PRN (16:53)
[2019-07-03] MEDS ORDERED: *HR* Dextrose 50 % in Water (Syg) 50 ML SYRINGE IVP PRN (16:53)
[2019-07-03] MEDS ORDERED: Dextrose Gel 15 GM/37.5 ML TUBE PO PRN ×2 (16:53)
[2019-07-03] MEDS ORDERED: Ipratropium/Albuterol Neb 3 ML IH PRN (16:53)
[2019-07-03] MEDS ORDERED: Ipratropium Neb 0.5 MG NEBULIZER IH PRN (16:59)
[2019-07-03] MEDS: *HR* Heparin 5,000 UNIT/ML VIAL SQ SCH (20:12)
[2019-07-03] MEDS ORDERED: QUEtiapine Fumarate 100 MG TABLET PO SCH (21:00)
[2019-07-03] MEDS ORDERED: carBAMazepine 200 MG TABLET PO SCH (21:00)
[2019-07-03] MEDS ORDERED: Insulin LISPRO 300 UNITS/3 ML VIAL SQ SCH (21:00)
[2019-07-03] MEDS ORDERED: Acetaminophen IV 1,000 MG/100 ML INFUS..BTL IVPB ONE (21:15)
[2019-07-04 01:15] LABS: Basophils % 0.6 %; Eosinophils # 0.3 K/mcL (0.0-0.6); Eosinophils % 3.9 %; Hematocrit 35.4 % (35.3-44.9); Immature Granulocytes % 0.3 % (0-4); Lymphocytes # 3.4 K/mcL (0.6-4.6); Lymphocytes % 53.6 %; Mean Corpuscular HGB Conc 33.1 g/dL (31.6-35.5); Mean Corpuscular Hemoglobin 31.9 pg (28.0-33.3); Mean Corpuscular Volume 96.5 fL (83.0-100.0); Mean Platelet Volume 9.8 fL (9.4-12.4); Monocytes # 0.4 K/mcL (0.0-1.3); Monocytes % 6.5 %; Neutrophils # 2.2 K/mcL (1.6-8.9); Platelet Count 188 K/mcL (140-400); Red Blood Count 3.67 M/mcL (3.82-4.97); Red Cell Distribution Width 13.2 % (11.5-14.5); Segmented Neutrophils % 35.1 %; White Blood Count 6.3 K/mcL (4.3-11.1)
[2019-07-04 01:18] LABS: Hemoglobin 11.7 g/dL (11.5-15.4)
[2019-07-04 01:29] LABS: BUN/Creatinine Ratio 15 (6-26); Blood Urea Nitrogen 12 mg/dL (6-20); Carbon Dioxide 26 mEq/L (23-29); Chloride 107 mEq/L (98-107); Chol/HDL Ratio 5.5 (0-4.9); Cholesterol 187 mg/dL (< 200); Glucose 130 mg/dL (70-105); HDL Cholesterol 34 mg/dL (40-59); LDL Cholesterol,Calculated 86 mg/dL (0-99); Osmolality,Calculated 296 (280-300); Potassium 3.4 mEq/L (3.5-5.1); Sodium 142 mEq/L (136-145); Triglycerides 333 mg/dL (< 150); eGFR For African Americans > 60 (> 60); eGFR For Non-African Americans > 60 (> 60)
[2019-07-04] MEDS: *HR* Heparin 5,000 UNIT/ML VIAL SQ SCH (06:09)
[2019-07-04] MEDS ORDERED: Regadenoson 0.4 MG/5 ML SYRINGE IVP ONE (06:20)
[2019-07-04] MEDS ORDERED: Insulin LISPRO 300 UNITS/3 ML VIAL SQ SCH (07:30)
[2019-07-04] MEDS ORDERED: Aspirin 81 MG TAB.CHEW PO SCH (09:00)
[2019-07-04] MEDS ORDERED: DilTIAZem CD (24hr) 120 MG CAP.ER.24H PO SCH (09:00)
[2019-07-04 11:40] VITALS: BP 132/89
== END 2019-07-04 16:42 | disposition home or self-care (01) ==
LOC: EMEROOARM 11:50 → 3BNU 11:50 → SUATTDRO 14:42 → 3BNU 15:42
PROVIDERS: ADMIT Internal Medicine; ATTEND Family Medicine